=== PATIENT | female | born 1950 | race Caucasian/White ===

== ENCOUNTER 2017-01-07 06:20 | Inpatient (IN) | payer BC ==
--- NOTE | 2016-12-31 22:31 | HP ---
ADMISSION HISTORY AND PHYSICAL: DATE OF ADMISSION: 01/07/17 ATTENDING SURGEON: Dr. Eleno Crowell. CHIEF COMPLAINT: Rectosigmoid lesion. HISTORY OF PRESENT ILLNESS: This is a 66-year-old female who in recent months was found to have an ischemic left fifth toe. She underwent CTA for evaluation , which apparently showed a right lower lobe lesion of concern. There was an attempt at biopsy of the lesion, but it was nondiagnostic and she was not able to undergo further attempt. A subsequent PET scan did show the aforementioned right lower lobe lesion, but also a separate lesion in the area of the rectosigmoid colon. She underwent attempted colonoscopy on 12/11/[address] Hutchinson, this showing a near obstructing, malignant-appearing lesion at 15 cm. He was unable to advance the scope past the lesion. Multiple biopsies were performed, which showed tubulovillous adenoma with dysplasia. Of note, the patient did tolerate the prep and states that since the colonoscopy, her stools have been more formed though occasionally accompanied by cramping. Prior to that, she was experiencing diarrhea 4 to 6 times per day on a daily basis for the past 6 months. She denies any bright red blood per rectum, melena, or tarry stools. She was seen in the office by Dr. Crowell on 12/21/16. He reviewed her workup and she was examined. He has reviewed with her the indications for surgery, the risks, benefits, and alternatives. He will plan to check the remainder of the colon grossly and did not feel that further attempts at completion colonoscopy were indicated at this stage. She understands the plan for surgery and would like to proceed as scheduled with exploratory laparotomy with low anterior resection. She will complete standard mechanical with oral antibiotics, bowel prep, and receive standard IV prophylactic antibiotics. PAST MEDICAL HISTORY: Hypertension; long-term tobacco use; peripheral arterial disease (I do not have immediate access to her CTA results); type 2 diabetes ( poorly controlled with some degree of peripheral neuropathy); right lower lobe lung mass of undetermined significance, to be followed. She also states that she had a CVA in 2006 with spontaneous resolution and negative workup at that time. PAST SURGICAL HISTORY: Previous surgeries include right elbow surgery, open cholecystectomy, open appendectomy, and tubal ligation. CURRENT MEDICATIONS: 1. Atenolol/chlorthalidone 50/25 one tablet b.i.d. 2. Lisinopril 40 mg q. day. 3. Metformin 1000 mg b.i.d. 4. Levemir up to 30 units q.h.s. (the patient occasionally gives herself less to avoid hypoglycemia) (the patient instructed to reduce to 15 units the evening prior to her bowel prep on 01/05/17 and the evening prior to surgery, , or as directed by the anesthesiologist). 5. Pentoxifylline extended release 400 mg q. day (the patient instructed to hold after her 01/04/17 dose). Her medicine list also includes lovastatin 40 mg q. day though the patient does not believe she is currently this. DRUG ALLERGIES: PENICILLIN (rash). FAMILY HISTORY: Negative for colorectal cancer and also negative for anesthesia problems, bleeding, or clotting disorders. SOCIAL HISTORY: The patient lives with her partner and her mother. She is not currently working, but has worked previously in . She is a current smoker , 1 pack per day, but has smoked up to 2 packs per day for 30 years. She denies use of alcohol or other recreational drugs. REVIEW OF SYSTEMS: General: No recent constitutional symptoms other than per the HPI. Her weight has been stable. Cardiovascular: She is treated for hypertension. No additional history of known cardiovascular disease. She is scheduled for a nuclear stress test on 01/01/17 with followup with the seismic interpreter on 01/04/17. Respiratory: Long-term smoking history. She did have pulmonary function tests which were relatively normal. Known PET-avid right lower lobe lung mass (2.5 cm). GI: No upper GI symptoms, otherwise per HPI. : No problems reported. FUR SEWER: She states it has been many years since she had pelvic exam done and per her chart history, she has had some abnormal previous Pap smears. She is encouraged to have this done with her PCP. She states her last breast exam and mammogram was about 2 years ago with no significant interval history. She is also encouraged to have this done through her PCP. Endocrine: Type 2 diabetes, poorly controlled. Most recent A1c 8.5 from her chart record. Fingersticks typically running between 100 and 150 in the morning and between 200 and 300 in the evening. Neuropsych: No additions to above. PHYSICAL EXAMINATION GENERAL: Well-nourished, well-developed female. Who appears somewhat older than her stated age, in no acute distress. VITAL SIGNS: Height 61 inches, weight 160 pounds by history, blood pressure 150 /90, pulse 72, respirations 16. HEENT: Pupils equal, round, and reactive. EOMs intact. No conjunctival pallor. Oropharynx: Teeth in fair repair. No intraoral lesions. NECK: No lymphadenopathy, thyromegaly, or masses. LUNGS: Clear to auscultation. No rales or wheezes. HEART: Regular rhythm. No murmur noted. BREASTS: Not examined. ABDOMEN: Well-healed right subcostal and right lower quadrant incisions. Abdomen is otherwise soft, nontender, and without palpable masses or organomegaly. EXTREMITIES: No edema. I did not specifically examine her feet. Per her PCP notes, pedal pulses are 2+ and equal bilaterally. There is no mention regarding the left fifth toe, but per Dr. Crowell's history, it auto- amputated and did not require any further intervention. GENITALIA AND RECTAL: Not done. BACK: No spinous process or CVA tenderness. NEUROLOGICAL: Grossly intact. Specific testing not performed. SKIN: Warm and dry. No suspicious rashes or lesions noted. IMPRESSION: Highly suspicious lesion in the rectosigmoid colon. PLAN: Exploratory laparotomy and low anterior resection. DAVID VARGAS CC: Dr. Eleno Crowell; Dr. Cruz Ayers; Dr. Patrice Calabrese; Dr. Elkin Hutchinson ; [facility] * [id number]/[facility] #: [id number] [facility]
[~2017-01-07 06:20] MED LIST: Famotidine IV* 10 MG/ML 2 ML (20 mg) ONE; Heparin VIAL(*) 5000 UNITS/ML VIAL (FIVE THOUSAND) ONE; Metoclopramide TAB* 10 MG ONE
[2017-01-07] MEDS ORDERED: Ondansetron INJ* 2 MG/ML VIAL ONE (07:23)
[2017-01-07] MEDS ORDERED: Rocuronium* 10 MG/ML VIAL ONE ×2 (07:23→10:39)
[2017-01-07] MEDS ORDERED: Lidocaine 2% PF* 5 ML VIAL ONE (07:23)
[2017-01-07] MEDS ORDERED: Surgical Lubricant STERILE* 120 GM TOP.GEL ONE (07:23)
[2017-01-07] MEDS ORDERED: Propofol* 10 MG/ML 20 ML BTL IV PUSH ONE (07:23)
[2017-01-07] MEDS ORDERED: fentaNYL* 50 MCG/ML 2 ML VIAL (100 MCG VIAL) ONE ×3 (07:23→10:39)
[2017-01-07] MEDS ORDERED: Ketorolac INJ* 30 MG/ML 1 ML VIAL ONE (07:23)
[2017-01-07] MEDS ORDERED: Dexamethasone IV* 4 MG/ML 1 ML (4 MG) ONE (07:23)
[2017-01-07] MEDS ORDERED: KETAMINE HCL* 50 MG/ML 10 ML VIAL ONE (07:24)
[2017-01-07] MEDS ORDERED: Midazolam* 1 MG/ML 5 ML VIAL (5 MG) ONE (07:24)
[2017-01-07] MEDS ORDERED: Insulin REGULAR(*) 1 UNITS UNIT ONE ×2 (07:36→09:39)
[2017-01-07] MEDS ORDERED: Ertapenem* 1 GM in NS 0.9% 50 ML* 50 ML IVPB ONE (08:00)
[2017-01-07] MEDS ORDERED: EPHEDrine (Pressors)* 50 MG/ML VIAL ONE (08:29)
[2017-01-07] MEDS ORDERED: Phenylephrine INJ* 10 MG/ML 1 ML VIAL (10 MG) ONE (08:30)
[2017-01-07] MEDS ORDERED: Ondansetron INJ* 2 MG/ML VIAL IV PRN ×2 (09:45→11:46)
[2017-01-07] MEDS ORDERED: Levalbuterol 0.63MG/3ML NEB INH PRN (09:45)
[2017-01-07] MEDS ORDERED: HYDROmorphone* 1 MG/ML 1 ML SYR IV PRN (09:45)
[2017-01-07] MEDS ORDERED: fentaNYL* 50 MCG/ML 2 ML VIAL (100 MCG VIAL) IV PRN (09:45)
[2017-01-07] MEDS ORDERED: Neostigmine Methylsulfate* 2 MG/2 ML SYRINGE ONE (11:04)
[2017-01-07] MEDS ORDERED: Glycopyrrolate IV* 0.2 MG/ML 1 ML VIAL ONE (11:04)
[2017-01-07] MEDS ORDERED: HYDROmorphone* 1 MG/ML 1 ML SYR ONE ×2 (11:07→11:57)
[2017-01-07] MEDS ORDERED: Acetaminophen TAB* 325 MG PO PRN (11:46)
--- NOTE | 2017-01-07 11:48 | SURGPN ---
Brief Operative Note - Surgery Procedures: Procedures OPERATIVE REPORT PRE-OP: Near-obstructing distal sigmoid colon mass POST-OP: Same PROCEDURE: Open Low anterior colon resection with diverting loop ileostomy SURGEON: MD Mervat ANESTHESIA: General with Dr. Paul ASST: Hola Mehta PA IVF: 2 liters of crystalloid EBL: 200 cc SPECIMEN: rectosigmoid URINE: 250 cc DRAIN: none WOUND CLASS: 4 COMPLICATIONS: none TO PACU
[2017-01-07] MEDS ORDERED: Morphine PCA ADULT* 5 MG/ML 30 ML PCA SCH (12:00)
[2017-01-07] MEDS ORDERED: Labetalol IV* 5 MG/ML 20 ML VIAL IV PUSH ONE (13:00)
[2017-01-07] MEDS ORDERED: Morphine PCA ADULT* 5 MG/ML 30 ML ONE (13:01)
[2017-01-07] MEDS ORDERED: Dextrose 50% Syringe 50 ML* 25 GM/50 ML SYRINGE IV PUSH PRN (14:35)
[2017-01-07] MEDS ORDERED: hydrALAZINE IV* 20 MG/ML VIAL IV SLOW PU PRN (14:37)
[2017-01-07] MEDS ORDERED: Metoprolol Tartrate IV* 1 MG/ML 5 ML VIAL IV SCH (15:00)
[2017-01-07] MEDS: Heparin VIAL(*) 5000 UNITS/ML VIAL (FIVE THOUSAND) SUBCUT SCH ×2 (15:56→21:23)
[2017-01-07] MEDS: Metoprolol Tartrate IV* 1 MG/ML 5 ML VIAL IV SCH ×2 (16:03→21:25)
[2017-01-07] MEDS: Insulin LISPRO* 1 UNITS UNIT SUBCUT SCH ×2 (17:07→21:20)
[2017-01-07] MEDS ORDERED: Insulin LISPRO* 1 UNITS UNIT SUBCUT SCH (18:00)
--- NOTE | 2017-01-07 19:58 | CONS ---
CONSULTATION REPORT: DATE OF CONSULT: 01/07/17 PRIMARY CARE PROVIDER: Dr. Ayers. REQUESTING PROVIDER: Dr. Crowell. REASON FOR CONSULT: Medical comanagement. HISTORY OF PRESENT ILLNESS: Ms. Franklin is a 66-year-old female, who was recently identified to have a near-obstructing malignant-appearing lesion at 15 cm in the sigmoid colon with biopsy showing tubulovillous adenoma with dysplasia. The patient underwent open low anterior colon resection with diverting loop ileostomy on 01/07/17. The patient is seen on the surgical short stay unit. The patient is very sleepy postoperatively. She can barely keep her eyes open to speak with me. She currently denies any pain or any other symptoms. PAST MEDICAL HISTORY: Per previous records: 1. Hypertension. 2. Tobacco abuse. 3. Peripheral arterial disease. 4. Type 2 diabetes. 5. Right lower lobe lung mass of undetermined significance. 6. History of CVA in 2006. PAST SURGICAL HISTORY: 1. Right elbow surgery. 2. Open cholecystectomy. 3. Open appendectomy. 4. Tubal ligation. 5. Open low anterior colon resection with diverting loop ileostomy. MEDICATIONS: Home medications: 1. Lisinopril 40 mg p.o. daily. 2. Levemir 24 to 30 units subcutaneous q.h.s. 3. Atenolol/chlorthalidone 50/25 two tabs p.o. daily. 4. Metformin 1000 mg p.o. twice daily. 5. Trental 400 mg p.o. daily. Current hospital medications: 1. Tylenol 650 mg p.o. q.4 hours p.r.n. pain. 2. Colace 100 mg p.o. b.i.d. p.r.n. constipation. 3. . 4. Heparin 5000 units subcutaneous q.8 hours. 5. Morphine FRONT OFFICE ASSOCIATE. 6. Zofran 4 mg IV q.4 hours p.r.n. nausea. 7. Normal saline at 125 mL/hour. ALLERGIES: PENICILLIN. FAMILY HISTORY: Per admission H and P. Negative for colorectal cancer, bleeding, or clotting disorders. SOCIAL HISTORY: Per admitting H and P. The patient lives with her partner and her mother. She is not working. She smokes 1 pack per day, but has smoked in the past up to 2 packs per day for 30 years. She denies any alcohol use. REVIEW OF SYSTEMS: Unobtainable due to lethargy postoperatively. PHYSICAL EXAM: Blood pressure 143/74, pulse 81, respirations 18, temp 97.6, O2 sat 98% on 4 L. General: The patient is a well-developed, middle-aged female lying in the bed, awakens to voice but promptly falls back asleep, in no acute distress. HEENT: Pupils are equal, they are round. Extraocular muscles are intact. Oropharynx is clear. Oral mucosa is slightly dry. There is no submandibular, cervical, or supraclavicular adenopathy. Thyroid is not enlarged. No thyroid nodule is noted. Cardiac: Normal S1 and S2. Regular rate and rhythm. I do not appreciate any murmurs. Pulmonary: Lungs are clear to auscultation anteriorly. Abdomen: Bowel sounds are hypoactive. Abdomen appears to be slightly distended. The midline incision is covered with the clean and dry dressing. There is soft brown stool noted in the ileostomy bag. Musculoskeletal: There is no cyanosis or clubbing of the digits. The patient does not move her limbs at this point due to being asleep. Neuro Exam: Deferred at this time due to the patient is sleeping. Psych: The patient is sleepy, but she is aware of current situation. LABORATORY DATA: Most recent glucose 209. ASSESSMENT AND PLAN: Ms. Franklin is a 66-year-old female, who was recently diagnosed to have a highly suspicious lesion in the rectosigmoid colon undergoing exploratory laparotomy with open low anterior colon resection and creation of loop ileostomy. 1. Sigmoid colon lesion, status post open low anterior colon resection with creation of loop ileostomy. Management per General Surgery including pain control and DVT prophylaxis. 2. Type 2 diabetes. The patient's sugars are quite elevated. She was instructed to take only half of her usual dose of Levemir the night prior to surgery. It is unclear how well the patient will be eating on the day postoperatively; therefore, I will continue her only on Lantus 10 units subcutaneous nightly. I will go ahead and order hemoglobin A1c to try to identify how well controlled her sugars are at baseline. She will be on a lispro sliding scale a.c. and h.s. The patient will likely need adjustments in her insulin regimen as I am holding her metformin and again she is only receiving a third of her usual dose of prolonged-acting insulin. These will need to be followed closely as we would like to keep her blood sugars in optimal range for wound healing. 3. Hypertension. At this point, the patient is not taking much in by mouth. Her blood pressure is mildly to moderately elevated. I will go ahead and start her on metoprolol 5 mg IV q.6 hours standing with hold parameters for heart rate less than 65. Additionally, hydralazine will be ordered as I am holding her oral atenolol and chlorthalidone as well as her lisinopril. Once the patient is routinely taking in meds by mouth, these medications can be added back. 4. Stage III chronic kidney disease. The patient had lab work performed on that reveals a creatinine of 1.33. This is within the patient's normal range of creatinine. She will need to be monitored closely for worsening. Again, I am holding her chlorthalidone and moving forward, I would highly consider discontinuing the chlorthalidone altogether. 5. Peripheral arterial disease. At this time, the patient's Trental will be held. Again, once she is taking her medications routinely, this can be added back at the discretion of General Surgery. 6. DVT prophylaxis. Per General Surgery, the patient has been started on heparin 5000 units subcutaneous q.8 hours. 7. Code status is full. TIME SPENT: Forty minutes was spent on this consultation of which greater than half was spent reviewing the patient's past records and attempting a physical exam and history with the patient. CC: Dr. Ayers; Dr. Crowell* [id number]/[facility] #: [id number] G[facility]
[2017-01-07] MEDS: NS 0.9% 1000 ML* 1,000 ML IV SCH (20:45)
[2017-01-07] MEDS ORDERED: Insulin GLARGINE(*) 1 UNITS UNIT SUBCUT SCH (21:00)
[2017-01-08] MEDS: Metoprolol Tartrate IV* 1 MG/ML 5 ML VIAL IV SCH ×4 (03:19→21:24)
[2017-01-08] MEDS: Heparin VIAL(*) 5000 UNITS/ML VIAL (FIVE THOUSAND) SUBCUT SCH ×3 (04:56→21:27)
[2017-01-08] MEDS: NS 0.9% 1000 ML* 1,000 ML IV SCH ×2 (04:57→21:46)
[2017-01-08 05:23] LABS: Hematocrit 33 % (35-47); Hemoglobin 10.7 g/dl (12.0-16.0); Mean Corpuscular HGB Conc 32 g/dl (31-36); Mean Corpuscular Hemoglobin 26 pg (27-31); Mean Corpuscular Volume 80 fL (80-97); Mean Platelet Volume 9 um3 (7.4-10.4); Red Blood Count 4.14 10^6/ul (4.0-5.4); Red Cell Distribution Width 16 % (10.5-15); White Blood Count 12.4 10^3/ul (3.5-10.8)
[2017-01-08 05:48] LABS: BUN/Creatinine Ratio 15.5 (8-20); Calcium 7.9 mg/dL (8.6-10.3); EGFR African American 45.7 (>60); EGFR Non-African American 35.5 (>60); Magnesium 1.3 mg/dL (1.9-2.7); Potassium 3.6 mmol/L (3.5-5.0)
[2017-01-08] MEDS ORDERED: Magnesium Sulfate 2 GM IV* 2 GM/50 ML BAG IVPB ONE (07:05)
--- NOTE | 2017-01-08 07:12 | PN ---
Progress Note - Progress Note SOAP: Subjective: She is doing well with minimal pain and no trouble breathing Slept OK for several hours. No nausea Objective: Temp Pulse Resp BP Pulse Ox 98.1 F 91 16 120/57 96 01/08/17 03:18 01/08/17 03:18 01/08/17 06:00 01/08/17 03:18 01/08/17 06:00 Intake & Output 01/06/17 01/07/17 01/08/17 01/09/17 06:59 06:59 06:59 06:59 Intake Total 4480 Output Total 1050 Balance 3430 Weight 154 lb Intake: IV Fluids 4150 LR 2200 NS (0.9%) 1950 Oral 330 Output: Lim 800 Colostomy 50 Estimated Blood Loss 200 PEX: Comfortable Lungs are clear with decreased breath sounds at the bases. No rales Abd is soft and non-distended. Bowel sounds are present. Dressing intact. Ostomy is pink and edematous and has some green thick fluid in bag Extremities without edema Laboratory Results - last 24 hr 01/07/17 01/07/17 01/07/17 07:05 07:10 09:36 WBC RBC Hgb Hct MCV MCH MCHC RDW Plt Count MPV Neut % (Auto) Lymph % (Auto) [place] % (Auto) Eos % (Auto) Baso % (Auto) Absolute Neuts (auto) Absolute Lymphs (auto) Absolute Monos (auto) Absolute Eos (auto) Absolute Basos (auto) Absolute Nucleated RBC Nucleated RBC % Sodium Potassium Chloride Carbon Dioxide Anion Gap BUN Creatinine Est GFR ( Amer) Est GFR (Non-Af Amer) BUN/Creatinine Ratio Glucose POC Glucose (mg/dL) 233 H 231 H 255 H Hemoglobin A1c Calcium Magnesium 01/07/17 01/07/17 01/07/17 10:38 12:12 16:47 WBC RBC Hgb Hct MCV MCH MCHC RDW Plt Count MPV Neut % (Auto) Lymph % (Auto) [place] % (Auto) Eos % (Auto) Baso % (Auto) Absolute Neuts (auto) Absolute Lymphs (auto) Absolute Monos (auto) Absolute Eos (auto) Absolute Basos (auto) Absolute Nucleated RBC Nucleated RBC % Sodium Potassium Chloride Carbon Dioxide Anion Gap BUN Creatinine Est GFR ( Amer) Est GFR (Non-Af Amer) BUN/Creatinine Ratio Glucose POC Glucose (mg/dL) 212 H 209 H 334 H Hemoglobin A1c Calcium Magnesium 01/07/17 01/08/17 01/08/17 20:55 04:51 04:51 WBC 12.4 H RBC 4.14 Hgb 10.7 L Hct 33 L MCV 80 MCH 26 L MCHC 32 RDW 16 H Plt Count 287 MPV 9 Neut % (Auto) 80.0 Lymph % (Auto) 14.1 L [place] % (Auto) 5.5 Eos % (Auto) 0.2 Baso % (Auto) 0.2 Absolute Neuts (auto) 10.0 H Absolute Lymphs (auto) 1.7 Absolute Monos (auto) 0.7 Absolute Eos (auto) 0 Absolute Basos (auto) 0 Absolute Nucleated RBC 0 Nucleated RBC % 0 Sodium 135 Potassium 3.6 Chloride 105 Carbon Dioxide 21 L Anion Gap 9 BUN 23 Creatinine 1.48 H Est GFR ( Amer) 45.7 Est GFR (Non-Af Amer) 35.5 BUN/Creatinine Ratio 15.5 Glucose 244 H POC Glucose (mg/dL) 292 H Hemoglobin A1c Calcium 7.9 L Magnesium 1.3 L 01/08/17 04:51 WBC RBC Hgb Hct MCV MCH MCHC RDW Plt Count MPV Neut % (Auto) Lymph % (Auto) [place] % (Auto) Eos % (Auto) Baso % (Auto) Absolute Neuts (auto) Absolute Lymphs (auto) Absolute Monos (auto) Absolute Eos (auto) Absolute Basos (auto) Absolute Nucleated RBC Nucleated RBC % Sodium Potassium Chloride Carbon Dioxide Anion Gap BUN Creatinine Est GFR ( Amer) Est GFR (Non-Af Amer) BUN/Creatinine Ratio Glucose POC Glucose (mg/dL) Hemoglobin A1c 8.1 H Calcium Magnesium Assessment: POD#1 s/p low anterior resection with diverting loop ileostomy--pathology pending Post-op ileus HTN DM Tobacco abuse Plan: OOB to chair and pulmonary toilet DM_Blood sugar control--appreciate hospitalist consult PPI and sub q heparin Replete magnesium. Lim to monitor urine output for another 24 hours.
[2017-01-08] MEDS: Insulin LISPRO* 1 UNITS UNIT SUBCUT SCH ×4 (08:54→21:23)
[2017-01-08] MEDS: Pantoprazole IV* 40 MG IV SCH (08:56)
[2017-01-08] MEDS ORDERED: Docusate CAP* 100 MG PO PRN (09:00)
--- NOTE | 2017-01-08 15:27 | PN ---
Subjective Date of Service: 01/08/17 Interval History: HOSPITALIST PROGRESS NOTE Patient seen and examined at bedside. She states her pain is controlled, but the GRAIN ELEVATOR OPERATOR makes her sleepy. Offers no other complaints. Family History: Unchanged from Admission Social History: Unchanged from Admission Past Medical History: Unchanged from Admission Objective Active Medications: Acetaminophen (Tylenol Tab*) 650 mg PO Q4H PRN PRN Reason: Pain Or Temperature >101 F Dextrose (D50w Syringe 50 Ml*) 12.5 gm IV PUSH .FOR FS < 60 - SS PRN PRN Reason: FS < 60 Docusate Sodium (Colace Cap*) 100 mg PO BID PRN PRN Reason: CONSTIPATION Heparin Sodium (Porcine) (Heparin Vial(*)) 5,000 units SUBCUT Q8HR [facility] Last Admin: 01/08/17 13:37 Dose: 5,000 units Hydralazine HCl (Apresoline Iv*) 5 mg IV SLOW PU Q6H PRN PRN Reason: SBP>180 Morphine Sulfate (Morphine It Technician Adult* 5 Mg/Ml) 30 mls @ 0 mls/hr GRAIN ELEVATOR OPERATOR .change Q24H NATASHA; Per Protocol PRN Reason: Protocol Sodium Chloride (Ns 0.9% 1000 Ml*) 1,000 mls @ 125 mls/hr IV PER RATE [facility] Last Admin: 01/08/17 04:57 Dose: 125 mls/hr Insulin Glargine (Lantus(*)) 20 units SUBCUT BEDTIME NATASHA Insulin Human Lispro (Humalog*) 0 units SUBCUT ACHS NATASHA PRN Reason: Protocol Last Admin: 01/08/17 13:37 Dose: 4 units Metoprolol Tartrate (Lopressor Iv*) 5 mg IV Q6H [facility] Last Admin: 01/08/17 08:56 Dose: 5 mg Ondansetron HCl (Zofran Inj*) 4 mg IV Q4H PRN PRN Reason: NAUSEA/VOMITING Pantoprazole Sodium (Protonix Iv*) 40 mg IV DAILY [facility] Last Admin: 01/08/17 08:56 Dose: 40 mg Vital Signs 01/08/17 01/08/17 12:06 15:11 Temperature 98.2 F 98.8 F Pulse Rate 81 81 Respiratory 16 16 Rate Blood Pressure 120/71 130/67 (mmHg) O2 Sat by Pulse 100 100 Oximetry Oxygen Devices in Use Now: Nasal Cannula Appearance: Pleasant lady lying in bed in NAD. Eyes: No Scleral Icterus Ears/Nose/Mouth/Throat: Mucous Membranes Moist Neck: Trachea Midline Respiratory: Symmetrical Chest Expansion and Respiratory Effort, Clear to Auscultation Cardiovascular: RRR - Normal S1 and S2 Abdominal: - - Soft, mild incisional tenderness, NG, NR, CDI, ostomy is pink, bag is empty, BS+ Extremities: No Edema Neurological: Alert and Oriented x 3, NL Muscle Strength and Tone Lines/Tubes/Other Access: Clean, Dry and Intact Peripheral IV Nutrition: Taking PO's Result Diagrams: 01/08/17 04:51 01/08/17 04:51 Assess/Plan/Problems-Billing Assessment: Mrs. Franklin is a 66yo F with PMH of HTN, tobacco abuse, PAD, type 2 DM, CVA, admitted for colon mass ressection. - Patient Problems (1) Colonic mass Comment: - S/p anterior ressection with diverting loop ileostomy. - Path pending. - Management as per Surgery. (2) Type 2 diabetes mellitus Comment: - Still uncontrolled. - Increase Lantus and continue Lispro SS. (3) HTN (hypertension) Comment: - Controlled. - Continue IV metoprolol, IV hydralazine. - Plan to resume PO meds tomorrow. (4) CKD stage 3 secondary to diabetes Comment: - Renal function is stable - continue to follow. (5) DVT prophylaxis Comment: - SQ heparin. (6) Full code status Status and Disposition: Inpatient. Hospitalist service will continue to follow.
--- NOTE | 2017-01-08 18:53 | OP ---
DATE OF OPERATION: 01/07/17 - ROOM #334 DATE OF : 54 SURGEON: Eleno Crowell MD CHARGER: Bob Howard MD ANESTHESIOLOGIST: Dr. Paul. ANESTHESIA: General. PRE-OP DIAGNOSIS: Proximal rectal near obstructing tumor. POST-OP DIAGNOSIS: Proximal rectal near obstructing tumor. OPERATIVE PROCEDURE: Low anterior rectosigmoid resection with diverting loop ileostomy. ESTIMATED BLOOD LOSS: 200 cc. IV FLUIDS: 2200 cc crystalloid. URINE OUTPUT: 250 cc. SPECIMENS: Portion of the rectosigmoid colon. DRAINS: None. COMPLICATIONS: None. FINDINGS: The patient did not have an adequate bowel prep due to the apparent near obstructing lesion and due to her multiple medical comorbidities including obstructive lung disease with tobacco abuse, diabetes and hypertension, although the anastomosis showed no evidence of an air leak, a temporary diverting loop ileostomy was fashioned to protect the anastomosis. DESCRIPTION OF PROCEDURE: Written informed consent was obtained, the abdomen was marked with indelible ink and preoperative antibiotics were administered. The patient was taken to the operating room, placed in the supine position. Sequential compression devices and a warming blanket were applied. The patient declined an epidural catheter placement. General anesthesia was administered. On attempted insertion of Lim catheter, a large amount of brown foul-smelling fluid passed per rectum which required an extensive amount of clean up. It did not appear that there was an adequate bowel prep. A Lim catheter was inserted after clean up. The abdomen and perineum were then prepped and draped in usual sterile fashion. Time-out verification was completed. Midline incision from above the umbilicus down to the pubis was then fashioned using a 15-blade knife and the peritoneal cavity was entered under direct vision. There was no intraabdominal fluid noted. No other adhesions. There were no other significant adhesions down into the pelvis. The patient has not undergone a complete colonoscopy due to the obstructing nature of the lesion, thus I was able to palpate the cecum. The appendix had been removed. The right colon and transverse colon, as well as descending colon down into the sigmoid colon were distended with air but I appreciated no palpable mass or serosal abnormalities. The small bowel was run from the ligament of Treitz down to the cecum and this was all unremarkable as well as its mesentery. The patient had undergone an open cholecystectomy many years ago. There were significant adhesions in the right upper quadrant. I was able to feel the left lateral segment of the liver and portion of the right part of the liver and I appreciated no masses although this was not a complete examination, but I did not feel that it was indicated to attempt to lyse the significant amount of adhesions especially in light of the fact that the CAT scan preoperatively was unremarkable. We then turned out attention down to the rectosigmoid area. Just at above the pelvic rim which was 5 to 6 cm above the peritoneal reflexion was a large mass of about 5 x 6 cm. This involved the serosa which was consistent with the wound location from the endoscopy. There was tattoo placed distal to this from the endoscopy which we were able to identify. Attention was then turned to the resection. The white line of Toldt was identified and the distal descending and sigmoid colon mobilized along this plane and the peritoneum was divided. We were able to enter the retroperitoneum and identified the left ureter without difficulty. This was protected from injury throughout. I then scored the peritoneum down to the peritoneal reflexion which was really well below the palpable mass and appeared to give us generous margin. We scored along the anterior rectum just behind the uterus and then continued to incise the peritoneum along the right portion of the rectosigmoid mesentery. Likewise, we were able to identify the right ureter and this was protected from injury throughout. The uterus as well as both ovaries were identified and these appeared to be normal. Next, the point on the mid sigmoid colon was then identified with the generous margin proximal to lesion, we divided this with the KHUSHBU 60 green load of a stapler. The mesentery was then taken distally after we identified what appeared to be the superior rectal artery and the inferior mesenteric artery and this stump was oversewn with 2-0 Polysorb suture. A mesenteric dissection was continued down into the proximal rectum to include as much of the fatty issue as possible to just about the pelvic rim at our site where we had divided the peritoneum. Some of the lateral stalks were then divided with the LigaSure device. We were able to use a TA 60 green load stapler to fire along the rectum down into the pelvis well below the mass. Once this was fired, the colon and the rectum was divided. This was passed off as specimen. It appeared that we really did need to mobilize more of the descending colon and proximal sigmoid colon as this was quite redundant and the proximal staple line was of excellent calibre and extended down to the pelvis without difficulty. Next, using the pursestring suture device, clamp and a 3-0 Monocryl suture, a pursestring was placed. This showed the lumen to be excellent calibre and thus we felt that we could use a 31 EEA stapler and the anvil was placed within the lumen and the pursestring tied without difficulty. assistant operations manager went down to below the patient's legs and serially dilated the anus and passed the serial dilators up into the rectal stump without difficulty. Once this has been completed, the 31 mm EEA stapler was then passed up into the stump and the pin was passed through just anterior to the staple line. With care to prevent twisting of the proximal colon, the anvil was clipped into plates. The stapler was closed and subsequently fired. Two complete donuts were noted on the stapling device after this was removed from the rectum. Next, we clamped the mid sigmoid colon and filled the pelvis with saline. Generous amount of air was insufflated up from the rectum and there was no evidence of leak and anastomosis appeared to be viable with excellent blood supply and no evidence of tension. Once the anastomosis was complete, all sponge and laparotomy pads were removed. The abdomen and pelvis were irrigated thoroughly. Hemostasis was assured. In light of the patient's multiple comorbidities and the fact that I do not believe that this was an adequate bowel prep, despite the fact that the anastomosis showed no leak or required repair, I made a decision to proceed with a diverting loop ileostomy. A point on the terminal ileum about 10 inches proximal to the cecum was identified and appeared to come up through the anterior abdominal wall without tension. A circular portion of skin was excised to the right of the midline incision over the rectus muscle and the subcutaneous fat was removed. A defect was made through the rectus muscle and the loop of ileum was brought up with care to prevent twisting and it really came up nicely without tension. The midline incision was then closed with interrupted #1 Polysorb suture. The skin was approximated with stapling device and dry sterile dressings were applied. The loop ileostomy was matured to the skin by making a transverse incision in the small intestine and everting this back on to itself with interrupted 3-0 Polysorb suture. I did place a red rubber catheter through the base of the mesentery which is circled out, which was essentially fashioned a loop around the small bowel to prevent it from retracting. An ostomy appliance was then placed. The patient tolerated the procedure well and was taken to the recovery room in stable condition. CC: [facility]; Dr. Cruz Ayers in [place]; Dr. Patrice Calabrese, Oncology* [id number]/[facility] #: [id number] [facility]
[2017-01-08] MEDS: Insulin GLARGINE(*) 1 UNITS UNIT SUBCUT SCH (21:23)
[2017-01-09] MEDS: Metoprolol Tartrate IV* 1 MG/ML 5 ML VIAL IV SCH ×3 (04:05→14:19)
[2017-01-09] MEDS: NS 0.9% 1000 ML* 1,000 ML IV SCH ×3 (05:53→17:30)
[2017-01-09] MEDS: Heparin VIAL(*) 5000 UNITS/ML VIAL (FIVE THOUSAND) SUBCUT SCH ×3 (06:20→23:08)
[2017-01-09 06:34] LABS: Hematocrit 32 % (35-47); Hemoglobin 10.4 g/dl (12.0-16.0); Mean Corpuscular HGB Conc 33 g/dl (31-36); Mean Corpuscular Hemoglobin 26 pg (27-31); Mean Corpuscular Volume 81 fL (80-97); Mean Platelet Volume 9 um3 (7.4-10.4); Red Blood Count 3.93 10^6/ul (4.0-5.4); Red Cell Distribution Width 16 % (10.5-15); White Blood Count 10.2 10^3/ul (3.5-10.8)
[2017-01-09 07:00] LABS: Albumin 2.8 g/dL (3.2-5.2); BUN/Creatinine Ratio 10.4 (8-20); Calcium 8.6 mg/dL (8.6-10.3); EGFR African American 50.8 (>60); EGFR Non-African American 39.5 (>60); Globulin 2.4 g/dL (2-4); Magnesium 1.8 mg/dL (1.9-2.7); Total Bilirubin 0.3 mg/dL (0.2-1.0); Total Protein 5.2 g/dL (6.4-8.9)
[2017-01-09] MEDS ORDERED: Magnesium Sulfate 2 GM IV* 2 GM/50 ML BAG IVPB ONE ×2 (08:00→11:31)
[2017-01-09] MEDS: Pantoprazole IV* 40 MG IV SCH (09:41)
[2017-01-09] MEDS: Insulin LISPRO* 1 UNITS UNIT SUBCUT SCH ×4 (09:41→20:55)
--- NOTE | 2017-01-09 11:34 | PN ---
Progress Note - Progress Note SOAP: Subjective: [] Objective: [] Assessment: [] Plan: []
--- NOTE | 2017-01-09 11:36 | PN ---
Progress Note - Progress Note SOAP: Subjective: Slept well last night Pain is adequately controlled with FOOT ORTHOPEDIST No N/V Objective: Temp Pulse Resp BP Pulse Ox 98.8 F 84 18 168/75 98 01/09/17 07:26 01/09/17 07:26 01/09/17 10:00 01/09/17 07:26 01/09/17 10:00 Intake & Output 01/07/17 01/08/17 01/09/17 01/10/17 06:59 06:59 06:59 06:59 Intake Total 4480 2995 Output Total 1050 2225 700 Balance 3430 770 -700 Weight 154 lb Intake: IV Fluids 4150 1541 LR 2200 NS (0.9%) 1950 1541 IVPB 1454 NS (0.9%) 1400 magnesium 54 Oral 330 0 Output: Pan 800 2175 700 Colostomy 50 50 Estimated Blood Loss 200 PEX: COmfortable Lungs are CTA with decreased breath sounds at the bases Abd is soft and non-distended. Bowel sounds are present but hypoactive. The midline incision is clean and ddry Ostomy is pink and there is some thick green residue in the bag. Extremities without edema Laboratory Results - last 24 hr 01/08/17 01/08/17 01/08/17 12:09 17:05 21:07 WBC RBC Hgb Hct MCV MCH MCHC RDW Plt Count MPV Neut % (Auto) Lymph % (Auto) [place] % (Auto) Eos % (Auto) Baso % (Auto) Absolute Neuts (auto) Absolute Lymphs (auto) Absolute Monos (auto) Absolute Eos (auto) Absolute Basos (auto) Absolute Nucleated RBC Nucleated RBC % Sodium Potassium Chloride Carbon Dioxide Anion Gap BUN Creatinine Est GFR ( Amer) Est GFR (Non-Af Amer) BUN/Creatinine Ratio Glucose POC Glucose (mg/dL) 210 H 184 H 189 H Calcium Magnesium Total Bilirubin AST ALT Alkaline Phosphatase Total Protein Albumin Globulin Albumin/Globulin Ratio 01/09/17 01/09/17 01/09/17 05:53 05:53 07:28 WBC 10.2 RBC 3.93 L Hgb 10.4 L Hct 32 L MCV 81 MCH 26 L MCHC 33 RDW 16 H Plt Count 284 MPV 9 Neut % (Auto) 66.9 Lymph % (Auto) 21.5 L [place] % (Auto) 5.6 Eos % (Auto) 5.4 Baso % (Auto) 0.6 Absolute Neuts (auto) 6.8 Absolute Lymphs (auto) 2.2 Absolute Monos (auto) 0.6 Absolute Eos (auto) 0.6 Absolute Basos (auto) 0.1 Absolute Nucleated RBC 0 Nucleated RBC % 0 Sodium 137 Potassium 4.0 Chloride 106 Carbon Dioxide 24 Anion Gap 7 BUN 14 Creatinine 1.35 H Est GFR ( Amer) 50.8 Est GFR (Non-Af Amer) 39.5 BUN/Creatinine Ratio 10.4 Glucose 175 H POC Glucose (mg/dL) 175 H Calcium 8.6 Magnesium 1.8 L Total Bilirubin 0.30 AST 8 L ALT 9 Alkaline Phosphatase 42 Total Protein 5.2 L Albumin 2.8 L Globulin 2.4 Albumin/Globulin Ratio 1.2 01/09/17 11:29 WBC RBC Hgb Hct MCV MCH MCHC RDW Plt Count MPV Neut % (Auto) Lymph % (Auto) [place] % (Auto) Eos % (Auto) Baso % (Auto) Absolute Neuts (auto) Absolute Lymphs (auto) Absolute Monos (auto) Absolute Eos (auto) Absolute Basos (auto) Absolute Nucleated RBC Nucleated RBC % Sodium Potassium Chloride Carbon Dioxide Anion Gap BUN Creatinine Est GFR ( Amer) Est GFR (Non-Af Amer) BUN/Creatinine Ratio Glucose POC Glucose (mg/dL) 178 H Calcium Magnesium Total Bilirubin AST ALT Alkaline Phosphatase Total Protein Albumin Globulin Albumin/Globulin Ratio Pathology reviewed Assessment: POD # 2 s/p low anterior colon resection for colon cancer Post-op ileus HTN DM Chronic renal failure [] Plan: D/C pan Increase activity and pulmonary toilet Replete K+ Appreciate hospitalist help with medical problems including blood sugar control. Advance diet as tolerated Will discuss pathology reports with patient and her partner.
--- NOTE | 2017-01-09 11:49 | PN ---
Progress Note - Progress Note SOAP: Subjective: [] Doing well after surgery. Her pain is controlled with RETAIL SALES ADVISOR, sleepy. Still not eating, no gas yet. BS are improving and followed by Dr. Cabrera. Acetaminophen (Tylenol Tab*) 650 mg PO Q4H PRN PRN Reason: Pain Or Temperature >101 F Dextrose (D50w Syringe 50 Ml*) 12.5 gm IV PUSH .FOR FS < 60 - SS PRN PRN Reason: FS < 60 Docusate Sodium (Colace Cap*) 100 mg PO BID PRN PRN Reason: CONSTIPATION Heparin Sodium (Porcine) (Heparin Vial(*)) 5,000 units SUBCUT Q8HR [facility] Last Admin: 01/09/17 06:20 Dose: 5,000 units Hydralazine HCl (Apresoline Iv*) 5 mg IV SLOW PU Q6H PRN PRN Reason: SBP>180 Morphine Sulfate (Morphine Benefits Consultant Adult* 5 Mg/Ml) 30 mls @ 0 mls/hr RETAIL SALES ADVISOR .change Q24H NATASHA; Per Protocol PRN Reason: Protocol Sodium Chloride (Ns 0.9% 1000 Ml*) 1,000 mls @ 125 mls/hr IV PER RATE [facility] Last Admin: 01/09/17 05:53 Dose: 125 mls/hr Insulin Glargine (Lantus(*)) 20 units SUBCUT BEDTIME [facility] Last Admin: 01/08/17 21:23 Dose: 20 units Insulin Human Lispro (Humalog*) 0 units SUBCUT ACHS NATASHA PRN Reason: Protocol Last Admin: 01/09/17 09:41 Dose: 2 units Metoprolol Tartrate (Lopressor Iv*) 5 mg IV Q6H NATASHA Last Admin: 01/09/17 09:41 Dose: 5 mg Ondansetron HCl (Zofran Inj*) 4 mg IV Q4H PRN PRN Reason: NAUSEA/VOMITING Pantoprazole Sodium (Protonix Iv*) 40 mg IV DAILY [facility] Last Admin: 01/09/17 09:41 Dose: 40 mg Objective: [] Vital Signs Temp Pulse Resp BP Pulse Ox 98.8 F 84 18 168/75 98 01/09/17 07:26 01/09/17 07:26 01/09/17 10:00 01/09/17 07:26 01/09/17 10:00 HEENT - MUCOSA MOIST, NO JVD OR LAD CTA RRR S1S2 ABD - TRACE BS, DISTENDED. SOME LIQUID, NO STOOL, NO GAS ON EXAM IN BAG EXT TR EDEMA Pathology - T2 lesion that is at rectosigmoid junction. Review of gross specimen appears to show the cancer ends just above the rectal verge. Operative report consistent with but does not state directly a signior tumor. Review of PET and on imaging it appears to be a sigmoid mass, proximal to anterior bend in colon. Assessment: []66 year old with sigmoid mass and solitary pulmonary nodule. Resection of the sigmoid mass, T2 N0 with 19 LN removed. Plan: []1. Post operative recovery without complications to date and will continue to follow. Appreciate assistance of hospitalist service. 2. Colorectal caner. Appears to be sigmoid tumor but review of gross specimen raises question of if lesion extends to rectum. If rectal cancer would consider post operative radiation. Review of PET is reassuring. Will re-present in tumor board to discuss adjuvant treatment. Stage not determined second to pulmonary nodule. 3. Lung lesion. Ddx: solitary metastatic lesion from colon, primary lung cancer. She refused biopsy. For metastatic colon cancer, would plan VATS resection followed by adjuvant chemotherapy. If she has a primary lung cancer she would need a formal lobectomy and may not need adjuvant chemotherpy. No decision to be made today, discussed with patient and family.
[2017-01-09] MEDS ORDERED: Atenolol TAB* 50 MG PO SCH (16:00)
--- NOTE | 2017-01-09 16:02 | PN ---
Subjective Date of Service: 01/09/17 Interval History: HOSPITALIST PROGRESS NOTE Patient seen and examined at bedside. She feels tired, but pain is well controlled with JEWELLERY DESIGNER. Tolerating clear liquids well. Family History: Unchanged from Admission Social History: Unchanged from Admission Past Medical History: Unchanged from Admission Objective Active Medications: Acetaminophen (Tylenol Tab*) 650 mg PO Q4H PRN PRN Reason: Pain Or Temperature >101 F Dextrose (D50w Syringe 50 Ml*) 12.5 gm IV PUSH .FOR FS < 60 - SS PRN PRN Reason: FS < 60 Docusate Sodium (Colace Cap*) 100 mg PO BID PRN PRN Reason: CONSTIPATION Heparin Sodium (Porcine) (Heparin Vial(*)) 5,000 units SUBCUT Q8HR [facility] Last Admin: 01/09/17 14:19 Dose: 5,000 units Hydralazine HCl (Apresoline Iv*) 5 mg IV SLOW PU Q6H PRN PRN Reason: SBP>180 Morphine Sulfate (Morphine Family Psychologist Adult* 5 Mg/Ml) 30 mls @ 0 mls/hr JEWELLERY DESIGNER .change Q24H [facility]; Per Protocol PRN Reason: Protocol Sodium Chloride (Ns 0.9% 1000 Ml*) 1,000 mls @ 125 mls/hr IV PER RATE [facility] Last Admin: 01/09/17 15:15 Dose: 125 mls/hr Insulin Glargine (Lantus(*)) 20 units SUBCUT BEDTIME [facility] Last Admin: 01/08/17 21:23 Dose: 20 units Insulin Human Lispro (Humalog*) 0 units SUBCUT ACHS NATASHA PRN Reason: Protocol Last Admin: 01/09/17 13:29 Dose: 2 units Metoprolol Tartrate (Lopressor Iv*) 5 mg IV Q6H [facility] Last Admin: 01/09/17 14:19 Dose: 5 mg Ondansetron HCl (Zofran Inj*) 4 mg IV Q4H PRN PRN Reason: NAUSEA/VOMITING Pantoprazole Sodium (Protonix Iv*) 40 mg IV DAILY [facility] Last Admin: 01/09/17 09:41 Dose: 40 mg Vital Signs 01/09/17 01/09/17 12:00 15:37 Temperature 98.2 F Pulse Rate 80 Respiratory 18 20 Rate Blood Pressure 179/85 (mmHg) O2 Sat by Pulse 98 97 Oximetry Oxygen Devices in Use Now: Nasal Cannula Appearance: Pleasant lady lying in bed in NAD. Eyes: No Scleral Icterus Ears/Nose/Mouth/Throat: Mucous Membranes Moist Neck: Trachea Midline Respiratory: Symmetrical Chest Expansion and Respiratory Effort, Clear to Auscultation Cardiovascular: RRR - Normal S1 and S2 Abdominal: - - Soft, mild incisional tenderness, hypoactive bowel sounds, ostomy is pink, bag is empty Extremities: No Edema Neurological: Alert and Oriented x 3, NL Muscle Strength and Tone Lines/Tubes/Other Access: Clean, Dry and Intact Peripheral IV Nutrition: Taking PO's Result Diagrams: 01/09/17 05:53 01/09/17 05:53 Assess/Plan/Problems-Billing Assessment: Mrs. Franklin is a 66yo F with PMH of HTN, tobacco abuse, PAD, type 2 DM, CVA, admitted for colon mass ressection. - Patient Problems (1) Colonic mass Comment: - S/p anterior ressection with diverting loop ileostomy. - Path shows adenocarcinoma. - Management as per Surgery. - Oncology input appreciated. (2) Type 2 diabetes mellitus Comment: - Better controlled. - Continue Lantus and Lispro SS - will need to adjust when her diet is advanced. (3) HTN (hypertension) Comment: - Trending up. - Resume PO Atenolol and monitor. - Continue Hydralazine IV PRN. (4) CKD stage 3 secondary to diabetes Comment: - Renal function is stable - continue to follow. (5) DVT prophylaxis Comment: - SQ heparin. (6) Full code status Status and Disposition: Inpatient. Hospitalist service will continue to follow.
[2017-01-09] MEDS: Insulin GLARGINE(*) 1 UNITS UNIT SUBCUT SCH (20:55)
[2017-01-10] MEDS: Metoprolol Tartrate IV* 1 MG/ML 5 ML VIAL IV PRN ×2 (00:09→14:28)
[2017-01-10] MEDS: hydrALAZINE IV* 20 MG/ML VIAL IV SLOW PU PRN ×3 (01:51→15:45)
[2017-01-10] MEDS: NS 0.9% 1000 ML* 1,000 ML IV SCH ×2 (03:00→21:44)
[2017-01-10] MEDS: Heparin VIAL(*) 5000 UNITS/ML VIAL (FIVE THOUSAND) SUBCUT SCH ×3 (06:17→21:37)
[2017-01-10 06:44] LABS: Hematocrit 36 % (35-47); Hemoglobin 11.6 g/dl (12.0-16.0); Mean Corpuscular HGB Conc 32 g/dl (31-36); Mean Corpuscular Hemoglobin 26 pg (27-31); Mean Corpuscular Volume 80 fL (80-97); Mean Platelet Volume 9 um3 (7.4-10.4); Red Cell Distribution Width 16 % (10.5-15); White Blood Count 11.6 10^3/ul (3.5-10.8)
[2017-01-10 07:07] LABS: BUN/Creatinine Ratio 9.8 (8-20); Calcium 9.2 mg/dL (8.6-10.3); Potassium 3.9 mmol/L (3.5-5.0)
[2017-01-10] MEDS: Insulin LISPRO* 1 UNITS UNIT SUBCUT SCH ×4 (08:02→21:32)
[2017-01-10] MEDS: Morphine INJ* 2 MG/ML 1 ML SYRINGE IV PRN ×4 (08:09→21:44)
--- NOTE | 2017-01-10 08:36 | PN ---
Progress Note - Progress Note SOAP: Subjective: Had a "rough night" -cough and her BP was up No N/V and no appetite She says she did not take enough pain medication Objective: Temp Pulse Resp BP Pulse Ox 97.8 F 98 18 166/66 97 01/10/17 06:59 01/10/17 06:59 01/10/17 08:09 01/10/17 06:59 01/10/17 06:59 Intake & Output 01/08/17 01/09/17 01/10/17 01/11/17 06:59 06:59 06:59 06:59 Intake Total 4480 2995 2143 Output Total 1050 2225 4455 Balance 3430 770 -2312 Weight 154 lb Intake: IV Fluids 4150 1541 2033 LR 2200 NS (0.9%) 1950 1541 2033 IVPB 1454 60 NS (0.9%) 1400 magnesium 54 60 Oral 330 0 50 Output: Urine 3480 Lim 800 2175 700 Colostomy 50 50 175 Ileostomy 100 Estimated Blood Loss 200 PEX: Slightly uncomfortable Lungs with decreased breath sounds at the bases-no rales or wheezing/rhonchi Abd is soft and non-distended. Very few bowel sounds present. Incision is clean and intact without redness. Ostomy is pink and edematous with some thick green fluid in bag Extremities without edema Laboratory Results - last 24 hr 01/09/17 01/09/17 01/09/17 11:29 16:25 19:34 WBC RBC Hgb Hct MCV MCH MCHC RDW Plt Count MPV Neut % (Auto) Lymph % (Auto) [place] % (Auto) Eos % (Auto) Baso % (Auto) Absolute Neuts (auto) Absolute Lymphs (auto) Absolute Monos (auto) Absolute Eos (auto) Absolute Basos (auto) Absolute Nucleated RBC Nucleated RBC % Sodium Potassium Chloride Carbon Dioxide Anion Gap BUN Creatinine Est GFR ( Amer) Est GFR (Non-Af Amer) BUN/Creatinine Ratio Glucose POC Glucose (mg/dL) 178 H 135 H 143 H Calcium 01/09/17 01/10/17 01/10/17 20:48 06:15 06:15 WBC 11.6 H RBC 4.50 Hgb 11.6 L Hct 36 MCV 80 MCH 26 L MCHC 32 RDW 16 H Plt Count 358 MPV 9 Neut % (Auto) 75.6 Lymph % (Auto) 14.9 L Bee % (Auto) 3.3 Eos % (Auto) 5.5 Baso % (Auto) 0.7 Absolute Neuts (auto) 8.8 H Absolute Lymphs (auto) 1.7 Absolute Monos (auto) 0.4 Absolute Eos (auto) 0.6 Absolute Basos (auto) 0.1 Absolute Nucleated RBC 0 Nucleated RBC % 0 Sodium 136 Potassium 3.9 Chloride 104 Carbon Dioxide 19 L Anion Gap 13 H BUN 11 Creatinine 1.12 H Est GFR ( Amer) 63.0 Est GFR (Non-Af Amer) 49.0 BUN/Creatinine Ratio 9.8 Glucose 188 H POC Glucose (mg/dL) 150 H Calcium 9.2 04/06/17 07:43 WBC RBC Hgb Hct MCV MCH MCHC RDW Plt Count MPV Neut % (Auto) Lymph % (Auto) [place] % (Auto) Eos % (Auto) Baso % (Auto) Absolute Neuts (auto) Absolute Lymphs (auto) Absolute Monos (auto) Absolute Eos (auto) Absolute Basos (auto) Absolute Nucleated RBC Nucleated RBC % Sodium Potassium Chloride Carbon Dioxide Anion Gap BUN Creatinine Est GFR ( Amer) Est GFR (Non-Af Amer) BUN/Creatinine Ratio Glucose POC Glucose (mg/dL) 183 H Calcium Assessment: POD # 3 s/p low anterior colon resection with diverting ileostomy for colon cancer Pot-op ileus HTN DM Chronic renal failure WBC up slightly Plan: Will check CXR today Continue clear liquids Ostomy teaching Increase activity and pulmonary toilet PPI and subq heparin Recheck labs in AM
[2017-01-10] MEDS ORDERED: Lisinopril TAB* 10 MG PO SCH (09:00)
--- NOTE | 2017-01-10 09:25 | RAD ---
INDICATION: Productive cough COMPARISON: October 16, 2016 TECHNIQUE: PA and lateral dual-energy views were obtained. FINDINGS: Bones/Soft Tissues: There are no acute bony findings. Cardiomediastinal: The cardiomediastinal silhouette is normal. Lungs: There are no infiltrates. There is minor basilar hypoventilation. Pleura: There are no pleural effusions. Other: None IMPRESSION: MILD BASILAR HYPOVENTILATION.
[2017-01-10] MEDS: Pantoprazole IV* 40 MG IV SCH (09:34)
[2017-01-10] MEDS: Atenolol TAB* 50 MG PO SCH (09:34)
--- NOTE | 2017-01-10 13:20 | PN ---
Subjective Date of Service: 01/10/17 Interval History: HOSPITALIST PROGRESS NOTE Patient seen and examined at bedside. She's discouraged today. Afraid of coughing or taking a deep breath due to abdominal pain. PO intake has been minimal for the same reason. Family History: Unchanged from Admission Social History: Unchanged from Admission Past Medical History: Unchanged from Admission Objective Active Medications: Acetaminophen (Tylenol Tab*) 650 mg PO Q4H PRN PRN Reason: Pain Or Temperature >101 F Atenolol (Tenormin Tab*) 100 mg PO DAILY [facility] Last Admin: 01/10/17 09:34 Dose: 100 mg Dextrose (D50w Syringe 50 Ml*) 12.5 gm IV PUSH .FOR FS < 60 - SS PRN PRN Reason: FS < 60 Docusate Sodium (Colace Cap*) 100 mg PO BID PRN PRN Reason: CONSTIPATION Heparin Sodium (Porcine) (Heparin Vial(*)) 5,000 units SUBCUT Q8HR [facility] Last Admin: 01/10/17 06:17 Dose: 5,000 units Hydralazine HCl (Apresoline Iv*) 10 mg IV SLOW PU Q2H PRN PRN Reason: SBP>180 Last Admin: 01/10/17 06:16 Dose: 10 mg Sodium Chloride (Ns 0.9% 1000 Ml*) 1,000 mls @ 60 mls/hr IV .PER RATE [facility] Last Admin: 01/10/17 03:00 Dose: 60 mls/hr Insulin Glargine (Lantus(*)) 20 units SUBCUT BEDTIME [facility] Last Admin: 01/09/17 20:55 Dose: 20 units Insulin Human Lispro (Humalog*) 0 units SUBCUT ACHS [facility] PRN Reason: Protocol Last Admin: 01/10/17 11:44 Dose: 2 units Lisinopril (Prinivil Tab*) 10 mg PO DAILY [facility] Last Admin: 01/10/17 09:34 Dose: 10 mg Metoprolol Tartrate (Lopressor Iv*) 5 mg IV Q6H PRN PRN Reason: BLOOD PRESSURE Last Admin: 01/10/17 00:09 Dose: 5 mg Morphine Sulfate (Morphine Inj (Syringe)*) 1 mg IV Q1H PRN PRN Reason: PAIN Last Admin: 01/10/17 11:15 Dose: 1 mg Ondansetron HCl (Zofran Inj*) 4 mg IV Q4H PRN PRN Reason: NAUSEA/VOMITING Last Admin: 01/10/17 02:45 Dose: 4 mg Pantoprazole Sodium (Protonix Iv*) 40 mg IV DAILY [facility] Last Admin: 01/10/17 09:34 Dose: 40 mg Vital Signs 01/10/17 01/10/17 01/10/17 04:33 05:45 06:59 Temperature 97.9 F 97.8 F Pulse Rate 98 93 98 Respiratory 16 17 16 Rate Blood Pressure 179/92 198/86 166/66 (mmHg) O2 Sat by Pulse 95 95 97 Oximetry Oxygen Devices in Use Now: Nasal Cannula Appearance: Pleasant lady sitting up in recliner in NAD. Eyes: No Scleral Icterus Ears/Nose/Mouth/Throat: Mucous Membranes Moist Neck: Trachea Midline Respiratory: Symmetrical Chest Expansion and Respiratory Effort, Clear to Auscultation - but sounds are decreased in both bases Cardiovascular: RRR - Normal S1 and S2 Abdominal: - - Soft, diffuse tenderness, BS+ sluggish, ostomy is pink with mucus in the bag. Neurological: Alert and Oriented x 3, NL Muscle Strength and Tone Lines/Tubes/Other Access: Clean, Dry and Intact Peripheral IV Nutrition: Taking PO's Result Diagrams: 01/10/17 06:15 01/10/17 06:15 Assess/Plan/Problems-Billing Assessment: Mrs. Franklin is a 66yo F with PMH of HTN, tobacco abuse, PAD, type 2 DM, CVA, admitted for colon mass ressection. - Patient Problems (1) Atelectasis Comment: - Patient is a smoker as has chronic cough at baseline. - CxR shows basilar hypoventilation. - Encouraged to use incentive spirometry. (2) Colonic mass Comment: - S/p anterior ressection with diverting loop ileostomy. - Path shows adenocarcinoma. - Management as per Surgery. - Oncology input appreciated. (3) Type 2 diabetes mellitus Comment: - Better controlled. - Continue Lantus and Lispro SS - will need to adjust when her diet is advanced. (4) HTN (hypertension) Comment: - Trending up. - Increase Atenolol and add Lisinopril. - Continue Hydralazine IV PRN. - Continue to monitor. (5) CKD stage 3 secondary to diabetes Comment: - Renal function is stable - continue to follow. (6) DVT prophylaxis Comment: - SQ heparin. (7) Full code status Status and Disposition: Inpatient. Hospitalist service will continue to follow.
[2017-01-10] MEDS ORDERED: GuaiFENesin DM* 5 ML UDC PO PRN (13:21)
[2017-01-10] MEDS: Insulin GLARGINE(*) 1 UNITS UNIT SUBCUT SCH (21:37)
[2017-01-11] MEDS: Metoprolol Tartrate IV* 1 MG/ML 5 ML VIAL IV PRN (04:00)
[2017-01-11] MEDS: Morphine INJ* 2 MG/ML 1 ML SYRINGE IV PRN ×2 (04:00→06:58)
[2017-01-11] MEDS: Heparin VIAL(*) 5000 UNITS/ML VIAL (FIVE THOUSAND) SUBCUT SCH ×3 (05:26→21:46)
[2017-01-11] MEDS: hydrALAZINE IV* 20 MG/ML VIAL IV SLOW PU PRN ×3 (05:26→15:49)
[2017-01-11 06:34] LABS: Hematocrit 35 % (35-47); Hemoglobin 11.2 g/dl (12.0-16.0); Mean Corpuscular HGB Conc 32 g/dl (31-36); Mean Corpuscular Hemoglobin 26 pg (27-31); Mean Corpuscular Volume 80 fL (80-97); Mean Platelet Volume 9 um3 (7.4-10.4); Red Blood Count 4.34 10^6/ul (4.0-5.4); Red Cell Distribution Width 16 % (10.5-15)
[2017-01-11 06:54] LABS: Albumin 2.8 g/dL (3.2-5.2); BUN/Creatinine Ratio 11.2 (8-20); Calcium 8.9 mg/dL (8.6-10.3); EGFR African American 60.5 (>60); Globulin 2.6 g/dL (2-4); Magnesium 1.4 mg/dL (1.9-2.7); Phosphorus 2.8 mg/dL (2.5-5.0); Potassium 3.2 mmol/L (3.5-5.0); Total Bilirubin 0.3 mg/dL (0.2-1.0); Total Protein 5.4 g/dL (6.4-8.9)
[2017-01-11] MEDS ORDERED: KCL 10 MEQ/50 ML IVPREMIX* 10 MEQ/50 ML BAG ONE ×2 (07:18→15:17)
[2017-01-11] MEDS ORDERED: Lisinopril TAB* 10 MG ONE (07:18)
[2017-01-11] MEDS: Pantoprazole IV* 40 MG IV SCH (07:31)
[2017-01-11] MEDS: Lisinopril TAB* 10 MG PO SCH ×2 (07:31→07:47)
[2017-01-11] MEDS: Atenolol TAB* 50 MG PO SCH (07:31)
[2017-01-11] MEDS: KCL 10 MEQ/50 ML IVPREMIX* 10 MEQ/50 ML BAG IV SCH ×4 (07:32→15:19)
[2017-01-11] MEDS: Insulin LISPRO* 1 UNITS UNIT SUBCUT SCH ×4 (07:43→21:54)
--- NOTE | 2017-01-11 10:15 | PN ---
Subjective Date of Service: 01/11/17 Interval History: HOSPITALIST PROGRESS NOTE Patient seen and examined at bedside. She is in good spirits today. Pain is well controlled, tolerating clear liquids well. Cough is less frequent, trying to use IS more frequently. Family History: Unchanged from Admission Social History: Unchanged from Admission Past Medical History: Unchanged from Admission Objective Active Medications: Acetaminophen (Tylenol Tab*) 650 mg PO Q4H PRN PRN Reason: Pain Or Temperature >101 F Atenolol (Tenormin Tab*) 100 mg PO DAILY [facility] Last Admin: 01/11/17 07:31 Dose: 100 mg Dextrose (D50w Syringe 50 Ml*) 12.5 gm IV PUSH .FOR FS < 60 - SS PRN PRN Reason: FS < 60 Docusate Sodium (Colace Cap*) 100 mg PO BID PRN PRN Reason: CONSTIPATION Guaifenesin/Dextromethorphan (Robitussin Dm*) 5 ml PO Q4H PRN PRN Reason: COUGH Heparin Sodium (Porcine) (Heparin Vial(*)) 5,000 units SUBCUT Q8HR [facility] Last Admin: 01/11/17 05:26 Dose: 5,000 units Hydralazine HCl (Apresoline Iv*) 10 mg IV SLOW PU Q2H PRN PRN Reason: SBP>180 Last Admin: 01/11/17 05:26 Dose: 10 mg Sodium Chloride (Ns 0.9% 1000 Ml*) 1,000 mls @ 60 mls/hr IV .PER RATE [facility] Last Admin: 01/10/17 21:44 Dose: 60 mls/hr Potassium Chloride (Potassium Chloride 10 Meq/50 Ml Ivpremix*) 10 meq in 50 mls @ 50 mls/hr IV Q1H [facility] Stop: 01/11/17 10:59 Last Admin: 01/11/17 09:44 Dose: 50 mls/hr Insulin Glargine (Lantus(*)) 20 units SUBCUT BEDTIME [facility] Last Admin: 01/10/17 21:37 Dose: 20 units Insulin Human Lispro (Humalog*) 0 units SUBCUT ACHS [facility] PRN Reason: Protocol Last Admin: 01/11/17 07:43 Dose: Not Given Lisinopril (Prinivil Tab*) 40 mg PO DAILY [facility] Last Admin: 01/11/17 07:47 Dose: Not Given Morphine Sulfate (Morphine Inj (Syringe)*) 1 mg IV Q1H PRN PRN Reason: PAIN Last Admin: 01/11/17 06:58 Dose: 1 mg Ondansetron HCl (Zofran Inj*) 4 mg IV Q4H PRN PRN Reason: NAUSEA/VOMITING Last Admin: 01/10/17 02:45 Dose: 4 mg Pantoprazole Sodium (Protonix Iv*) 40 mg IV DAILY [facility] Last Admin: 01/11/17 07:31 Dose: 40 mg Vital Signs 01/11/17 01/11/17 01/11/17 06:58 07:27 10:01 Temperature 97.9 F Pulse Rate 75 Respiratory 18 20 Rate Blood Pressure 155/63 168/65 (mmHg) O2 Sat by Pulse 98 Oximetry Oxygen Devices in Use Now: Nasal Cannula Appearance: Pleasant lady sitting up in bed in NAD. Eyes: No Scleral Icterus Ears/Nose/Mouth/Throat: Mucous Membranes Moist Neck: Trachea Midline Respiratory: Symmetrical Chest Expansion and Respiratory Effort, Clear to Auscultation - decreased in both bases Cardiovascular: RRR - Normal S1 and S2 Abdominal: - - Soft, mild incisional tenderness, ostomy is pink Neurological: Alert and Oriented x 3, NL Muscle Strength and Tone Lines/Tubes/Other Access: Clean, Dry and Intact Peripheral IV Nutrition: Taking PO's Result Diagrams: 01/11/17 06:05 01/11/17 06:05 Assess/Plan/Problems-Billing Assessment: Mrs. Franklin is a 66yo F with PMH of HTN, tobacco abuse, PAD, type 2 DM, CVA, admitted for colon mass ressection. - Patient Problems (1) Atelectasis Comment: - Patient is a smoker as has chronic cough at baseline. - CxR shows basilar hypoventilation. - Continue to use incentive spirometry. - Suspect fever 100.9 yesterday was associated with it. No signs of infection at this time. (2) Colonic mass Comment: - S/p anterior ressection with diverting loop ileostomy. - Path shows adenocarcinoma. - Management as per Surgery. - Oncology input appreciated. (3) Type 2 diabetes mellitus Comment: - Controlled. - Continue Lantus and Lispro SS - will need to adjust when her diet is advanced. (4) HTN (hypertension) Comment: - Still uncontrolled. - Continue Atenolol and increase Lisinopril. - Continue Hydralazine IV PRN. - Continue to monitor. (5) CKD stage 3 secondary to diabetes Comment: - Renal function is stable - continue to follow. (6) Hypokalemia Comment: - Replete. (7) Hypomagnesemia Comment: - Replete. (8) DVT prophylaxis Comment: - SQ heparin. (9) Full code status Status and Disposition: Inpatient. Hospitalist service will continue to follow.
--- NOTE | 2017-01-11 11:15 | PN ---
Progress Note - Progress Note SOAP: Subjective: Feels much better this morning-slept better and she has less pain No SOB or nausea-her appetite is returning and she tolerated some broth yesterday. Objective: Tmax 100.9 Temp Pulse Resp BP Pulse Ox 97.9 F 75 20 168/65 98 01/11/17 07:27 01/11/17 07:27 01/11/17 07:27 01/11/17 10:01 01/11/17 07:27 Intake & Output 01/09/17 01/10/17 01/11/17 01/12/17 06:59 06:59 06:59 06:59 Intake Total 2995 2143 1469 Output Total 2225 4455 2000 Balance 670 -5405 -624 Intake: IV Fluids 1541 2033 989 NS (0.9%) 1541 2033 989 IVPB 1454 60 NS (0.9%) 1400 magnesium 54 60 Oral 0 50 480 Output: Urine 3480 1750 Lim 2175 700 Colostomy 50 175 Ileostomy 100 250 PEX: Comfortable Lungs with decreased breath sounds at the bases without rales or rhonchi Abd is soft and non-distended. Bowel sounds are faintly present and are not high pitched. Incision is clean and dry Ostomy is pink and edematous and has some green fluid in the bag Extremities without edema Laboratory Results - last 24 hr 01/10/17 01/10/17 01/10/17 11:32 16:38 21:31 WBC RBC Hgb Hct MCV MCH MCHC RDW Plt Count MPV Neut % (Auto) Lymph % (Auto) Harney % (Auto) Eos % (Auto) Baso % (Auto) Absolute Neuts (auto) Absolute Lymphs (auto) Absolute Monos (auto) Absolute Eos (auto) Absolute Basos (auto) Absolute Nucleated RBC Nucleated RBC % Sodium Potassium Chloride Carbon Dioxide Anion Gap BUN Creatinine Est GFR ( Amer) Est GFR (Non-Af Amer) BUN/Creatinine Ratio Glucose POC Glucose (mg/dL) 163 H 110 H 124 H Calcium Phosphorus Magnesium Total Bilirubin AST ALT Alkaline Phosphatase Total Protein Albumin Globulin Albumin/Globulin Ratio 01/11/17 01/11/17 01/11/17 06:05 06:05 07:42 WBC 10.0 RBC 4.34 Hgb 11.2 L Hct 35 MCV 80 MCH 26 L MCHC 32 RDW 16 H Plt Count 334 MPV 9 Neut % (Auto) 61.1 Lymph % (Auto) 22.4 L Harney % (Auto) 5.1 Eos % (Auto) 10.7 H Baso % (Auto) 0.7 Absolute Neuts (auto) 6.1 Absolute Lymphs (auto) 2.2 Absolute Monos (auto) 0.5 Absolute Eos (auto) 1.1 H Absolute Basos (auto) 0.1 Absolute Nucleated RBC 0 Nucleated RBC % 0 Sodium 139 Potassium 3.2 L Chloride 108 Carbon Dioxide 21 L Anion Gap 10 BUN 13 Creatinine 1.16 H Est GFR ( Amer) 60.5 Est GFR (Non-Af Amer) 47.0 BUN/Creatinine Ratio 11.2 Glucose 102 H POC Glucose (mg/dL) 102 Calcium 8.9 Phosphorus 2.8 Magnesium 1.4 L Total Bilirubin 0.30 AST 10 L ALT 9 Alkaline Phosphatase 45 Total Protein 5.4 L Albumin 2.8 L Globulin 2.6 Albumin/Globulin Ratio 1.1 Assessment: POD # 4 s/p low anterior resection with diverting loop ileostomy for colon cancer Post-op ileus-- improving HTN DM CRF Tobacco abuse Hypokalemis Plan: Advance diet as tolerated Ostomy teaching Increase activity Replete K+ Pulmonary toilet She is not ready for discharge yet-need to improve po intake and ambulate better.
[2017-01-11] MEDS: oxyCODONE/Acetamin 5/325 MG* TAB PO PRN ×2 (13:39→17:18)
[2017-01-11] MEDS ORDERED: Labetalol TAB* 100 MG PO ONE (15:53)
[2017-01-11] MEDS ORDERED: Furosemide IV* 10 MG/ML 2 ML VIAL (20 MG) IV SLOW PU ONE (15:54)
[2017-01-11] MEDS: hydrALAZINE TAB* 25 MG PO SCH ×2 (18:18→21:45)
[2017-01-11] MEDS: Insulin GLARGINE(*) 1 UNITS UNIT SUBCUT SCH (21:54)
[2017-01-12] MEDS: Labetalol TAB* 100 MG PO SCH ×3 (00:15→21:44)
[2017-01-12] MEDS: hydrALAZINE IV* 20 MG/ML VIAL IV SLOW PU PRN (05:40)
[2017-01-12] MEDS: Heparin VIAL(*) 5000 UNITS/ML VIAL (FIVE THOUSAND) SUBCUT SCH ×3 (05:40→21:46)
[2017-01-12 07:20] LABS: BUN/Creatinine Ratio 10.6 (8-20); Calcium 8.9 mg/dL (8.6-10.3); EGFR African American 56.5 (>60); Magnesium 1.3 mg/dL (1.9-2.7); Potassium 3.4 mmol/L (3.5-5.0)
--- NOTE | 2017-01-12 08:12 | PN ---
Progress Note - Progress Note Note: Surgery Ms. Franklin denies complaints, says she is eating pretty well. There is flatus and stool passing into the bag. Vital Signs 01/11/17 01/11/17 01/11/17 10:01 11:41 13:22 Temperature 98.0 F Pulse Rate 70 Respiratory 16 Rate Blood Pressure 168/65 154/56 197/70 (mmHg) O2 Sat by Pulse 99 Oximetry 01/11/17 01/11/17 01/11/17 13:39 15:31 16:33 Temperature 97.8 F Pulse Rate 70 68 Respiratory 16 17 Rate Blood Pressure 182/70 127/55 (mmHg) O2 Sat by Pulse 98 Oximetry 01/11/17 01/11/17 01/11/17 17:18 17:39 18:11 Temperature Pulse Rate 89 Respiratory 16 15 Rate Blood Pressure 112/54 (mmHg) O2 Sat by Pulse Oximetry 01/11/17 01/11/17 01/11/17 19:18 19:29 20:25 Temperature 97.9 F Pulse Rate 79 Respiratory 16 17 15 Rate Blood Pressure 127/56 (mmHg) O2 Sat by Pulse 99 Oximetry 01/11/17 01/12/17 01/12/17 23:14 01:02 03:29 Temperature 97.9 F 98.2 F 98.6 F Pulse Rate 76 79 82 Respiratory 15 17 17 Rate Blood Pressure 143/61 155/62 164/61 (mmHg) O2 Sat by Pulse 96 97 95 Oximetry 01/12/17 05:14 Temperature 98.0 F Pulse Rate 75 Respiratory 14 Rate Blood Pressure 170/61 (mmHg) O2 Sat by Pulse 96 Oximetry Abd: soft, tender near incision, diminished BS incision: clean and dry except for a small open area in center of incision. This is clean, but without much granulation. Intake & Output 01/11/17 01/12/17 01/12/17 22:59 06:59 14:59 Intake Total 1514 0 Output Total 1050 475 Balance 464 -475 Intake: IV Fluids 1032 0 NS (0.9%) 1032 potassium 0 0 IVPB 122 potassium 122 Oral 360 0 Output: Urine 1050 475 Ileostomy 0 Laboratory Results - last 24 hr 01/11/17 01/11/17 01/11/17 12:08 16:35 21:45 Sodium Potassium Chloride Carbon Dioxide Anion Gap BUN Creatinine Est GFR ( Amer) Est GFR (Non-Af Amer) BUN/Creatinine Ratio Glucose POC Glucose (mg/dL) 194 H 137 H 222 H Calcium Magnesium 01/12/17 06:41 Sodium 138 Potassium 3.4 L Chloride 106 Carbon Dioxide 22 Anion Gap 10 BUN 13 Creatinine 1.23 H Est GFR ( Amer) 56.5 Est GFR (Non-Af Amer) 44.0 BUN/Creatinine Ratio 10.6 Glucose 128 H POC Glucose (mg/dL) Calcium 8.9 Magnesium 1.3 L A/P: POD#5 s/p sigmoid resection; making progress. Will replete Mg and K+, repeat labs in a couple of days. Encourage ambulation, po intake.
[2017-01-12] MEDS: oxyCODONE/Acetamin 5/325 MG* TAB PO PRN ×3 (08:19→21:50)
[2017-01-12] MEDS: Insulin LISPRO* 1 UNITS UNIT SUBCUT SCH ×4 (08:20→21:45)
[2017-01-12] MEDS: hydrALAZINE TAB* 25 MG PO SCH ×3 (08:20→21:45)
[2017-01-12] MEDS: Lisinopril TAB* 10 MG PO SCH (08:20)
[2017-01-12] MEDS ORDERED: Potassium Chloride LIQUID* 20 MEQ PACKET PO SCH (09:00)
[2017-01-12] MEDS ORDERED: Magnesium Sulf 4 GM/100 ML IV* 4,000 MG/100 ML BAG IVPB ONE (10:00)
[2017-01-12] MEDS: Magnesium Oxide TAB* 400 MG PO SCH (10:14)
[2017-01-12] MEDS: Potassium Chloride LIQUID* 20 MEQ PACKET PO SCH (10:14)
[2017-01-12] MEDS: Pantoprazole IV* 40 MG IV SCH (10:14)
--- NOTE | 2017-01-12 12:51 | PN ---
Subjective Date of Service: 01/12/17 Interval History: HOSPITALIST PROGRESS NOTE Patient seen and examined at bedside. In very good spirits today, happy she had cream of wheat for breakfast. We walked around the unit and she did well, holding on to rails. Pain is well controlled and cough is improved. Family History: Unchanged from Admission Social History: Unchanged from Admission Past Medical History: Unchanged from Admission Objective Active Medications: Acetaminophen (Tylenol Tab*) 650 mg PO Q4H PRN PRN Reason: Pain Or Temperature >101 F Dextrose (D50w Syringe 50 Ml*) 12.5 gm IV PUSH .FOR FS < 60 - SS PRN PRN Reason: FS < 60 Docusate Sodium (Colace Cap*) 100 mg PO BID PRN PRN Reason: CONSTIPATION Guaifenesin/Dextromethorphan (Robitussin Dm*) 5 ml PO Q4H PRN PRN Reason: COUGH Heparin Sodium (Porcine) (Heparin Vial(*)) 5,000 units SUBCUT Q8HR [facility] Last Admin: 01/12/17 05:40 Dose: 5,000 units Hydralazine HCl (Apresoline Iv*) 10 mg IV SLOW PU Q2H PRN PRN Reason: SBP>180 Last Admin: 01/11/17 15:49 Dose: 10 mg Hydralazine HCl (Apresoline Tab*) 25 mg PO TID [facility] Last Admin: 01/12/17 08:20 Dose: 25 mg Magnesium Sulfate (Magnesium Sulf 4 Gm/100 Ml Iv*) 4,000 mg in 100 mls @ 33.333 mls/hr IVPB ONCE ONE Stop: 01/12/17 12:59 Last Admin: 01/12/17 10:04 Dose: 33.333 mls/hr Potassium Chloride (Potassium Chloride 10 Meq/50 Ml Ivpremix*) 10 meq in 50 mls @ 50 mls/hr IV Q1H [facility] Stop: 01/12/17 12:59 Insulin Glargine (Lantus(*)) 20 units SUBCUT BEDTIME [facility] Last Admin: 01/11/17 21:54 Dose: 20 units Insulin Human Lispro (Humalog*) 0 units SUBCUT ACHS [facility] PRN Reason: Protocol Last Admin: 01/12/17 08:20 Dose: 1 units Labetalol HCl (Trandate Tab*) 100 mg PO BID [facility] Last Admin: 01/12/17 08:20 Dose: 100 mg Lisinopril (Prinivil Tab*) 40 mg PO DAILY [facility] Last Admin: 01/12/17 08:20 Dose: 40 mg Magnesium Oxide (Magox 400 Tab*) 400 mg PO DAILY [facility] Last Admin: 01/12/17 10:14 Dose: 400 mg Morphine Sulfate (Morphine Inj (Syringe)*) 1 mg IV Q1H PRN PRN Reason: PAIN Last Admin: 01/11/17 06:58 Dose: 1 mg Ondansetron HCl (Zofran Inj*) 4 mg IV Q4H PRN PRN Reason: NAUSEA/VOMITING Last Admin: 01/10/17 02:45 Dose: 4 mg Oxycodone/Acetaminophen (Percocet 5/325 Tab*) 1 tab PO Q4H PRN PRN Reason: PAIN Last Admin: 01/12/17 08:19 Dose: 1 tab Pantoprazole Sodium (Protonix Iv*) 40 mg IV DAILY [facility] Last Admin: 01/12/17 10:14 Dose: 40 mg Potassium Chloride (Klor-Con Liquid*) 40 meq PO DAILY [facility] Last Admin: 01/12/17 10:14 Dose: 40 meq Vital Signs 01/12/17 12:17 Temperature 97.7 F Pulse Rate 77 Respiratory 18 Rate Blood Pressure 138/63 (mmHg) O2 Sat by Pulse 98 Oximetry Oxygen Devices in Use Now: None Appearance: Pleasant lady sitting up in a chair in [facility]. Eyes: No Scleral Icterus Ears/Nose/Mouth/Throat: Mucous Membranes Moist Neck: Trachea Midline Respiratory: Symmetrical Chest Expansion and Respiratory Effort, Clear to Auscultation Cardiovascular: RRR - Normal S1 and S2 Abdominal: - - Soft, mild incisional tenderness, NG, NR, ostomy is pink with liquid stool in the bag Extremities: - - Mild LE josee Neurological: Alert and Oriented x 3, NL Muscle Strength and Tone Lines/Tubes/Other Access: Clean, Dry and Intact Peripheral IV Nutrition: Taking PO's Result Diagrams: 01/11/17 06:05 01/12/17 06:41 Assess/Plan/Problems-Billing Assessment: Mrs. Franklin is a 66yo F with PMH of HTN, tobacco abuse, PAD, type 2 DM, CVA, admitted for colon mass ressection. - Patient Problems (1) Atelectasis Comment: - Patient is a smoker as has chronic cough at baseline. - CxR shows basilar hypoventilation. - Continue to use incentive spirometry. (2) Colonic mass Comment: - S/p anterior ressection with diverting loop ileostomy. - Path shows adenocarcinoma. - Management as per Surgery. - Oncology input appreciated. (3) Type 2 diabetes mellitus Comment: - Controlled. - As PO intake is increasing, will increase Lantus to 25 units and continue Lispro SS. (4) HTN (hypertension) Comment: - Better controlled. - Continue Atenolol, Lisinopril, and hydralazine. - Continue Hydralazine IV PRN. - Lasix one dose today. (5) CKD stage 3 secondary to diabetes Comment: - Renal function is stable - continue to follow. (6) Hypokalemia Comment: - Replete. (7) Hypomagnesemia Comment: - Replete. (8) DVT prophylaxis Comment: - SQ heparin. (9) Full code status Status and Disposition: Inpatient. Hospitalist service will continue to follow.
[2017-01-12] MEDS ORDERED: Furosemide IV* 10 MG/ML 2 ML VIAL (20 MG) IV SLOW PU ONE (12:54)
[2017-01-12] MEDS: KCL 10 MEQ/50 ML IVPREMIX* 10 MEQ/50 ML BAG IV SCH ×2 (13:27→16:31)
[2017-01-12] MEDS ORDERED: KCL 10 MEQ/50 ML IVPREMIX* 10 MEQ/50 ML BAG ONE (14:00)
[2017-01-12] MEDS ORDERED: Ondansetron TAB* 4 MG PO PRN (21:45)
[2017-01-12] MEDS: Insulin GLARGINE(*) 1 UNITS UNIT SUBCUT SCH (21:45)
[2017-01-13] MEDS: Heparin VIAL(*) 5000 UNITS/ML VIAL (FIVE THOUSAND) SUBCUT SCH ×3 (05:50→21:00)
[2017-01-13] MEDS: oxyCODONE/Acetamin 5/325 MG* TAB PO PRN ×3 (07:47→20:02)
[2017-01-13] MEDS: Lisinopril TAB* 10 MG PO SCH (08:13)
[2017-01-13] MEDS: Magnesium Oxide TAB* 400 MG PO SCH (08:14)
[2017-01-13] MEDS: Potassium Chloride LIQUID* 20 MEQ PACKET PO SCH (08:14)
[2017-01-13] MEDS: Labetalol TAB* 100 MG PO SCH ×2 (08:14→20:57)
[2017-01-13] MEDS: hydrALAZINE TAB* 25 MG PO SCH ×3 (08:14→20:58)
[2017-01-13] MEDS: Insulin LISPRO* 1 UNITS UNIT SUBCUT SCH ×4 (08:19→20:58)
[2017-01-13] MEDS: Omeprazole CAP* 20 MG PO SCH (08:25)
--- NOTE | 2017-01-13 08:40 | PN ---
Progress Note - Progress Note Note: Surgery Ms. Franklin declined labs this morning, but feels she is doing well. She emptied the bag herself, tolerated a diet and ambulated a lot. Vital Signs 01/12/17 01/12/17 01/12/17 10:19 10:26 12:17 Temperature 97.7 F 97.7 F Pulse Rate 82 77 Respiratory 20 18 18 Rate Blood Pressure 116/48 138/63 (mmHg) O2 Sat by Pulse 97 98 Oximetry 01/12/17 01/12/17 01/12/17 13:35 15:35 15:53 Temperature 97.6 F Pulse Rate 72 Respiratory 20 18 18 Rate Blood Pressure 128/60 (mmHg) O2 Sat by Pulse 99 Oximetry 01/12/17 01/12/17 01/12/17 16:00 18:10 19:23 Temperature 97.4 F Pulse Rate 81 Respiratory 17 Rate Blood Pressure 141/65 (mmHg) O2 Sat by Pulse 95 95 97 Oximetry 01/12/17 01/12/17 01/12/17 19:47 21:50 23:50 Temperature Pulse Rate Respiratory 16 16 16 Rate Blood Pressure (mmHg) O2 Sat by Pulse Oximetry 01/13/17 01/13/17 01/13/17 00:00 00:12 03:56 Temperature 97.5 F 97.8 F Pulse Rate 74 88 Respiratory 16 16 Rate Blood Pressure 121/56 153/63 (mmHg) O2 Sat by Pulse 98 95 98 Oximetry 01/13/17 01/13/17 07:47 08:00 Temperature 97.5 F Pulse Rate 79 Respiratory 18 18 Rate Blood Pressure 183/87 (mmHg) O2 Sat by Pulse 100 Oximetry Abd: good BS, soft, non-tender Dressing shows minimal drainage over open area,other areas of incision are intact without signs infection Intake & Output 01/12/17 01/13/17 01/13/17 22:59 06:59 14:59 Intake Total 780 300 Output Total 1725 1200 Balance -945 -900 Intake: Oral 780 300 Output: Urine 1500 1000 Ileostomy 225 200 Laboratory Results - last 24 hr 01/12/17 01/12/17 01/12/17 07:44 12:18 16:57 POC Glucose (mg/dL) 141 H 265 H 223 H 01/12/17 01/13/17 20:57 07:43 POC Glucose (mg/dL) 254 H 168 H A/P: Improving, check labs in AM, consider d/c if doing well.
--- NOTE | 2017-01-13 09:50 | PN ---
Subjective Date of Service: 01/13/17 Interval History: HOSPITALIST PROGRESS NOTE Patient seen and examined at bedside. She's in good spirits today. Pain is controlled, excited to try soft diet for breakfast. Very proud she was able to manage her ostomy bag. Family History: Unchanged from Admission Social History: Unchanged from Admission Past Medical History: Unchanged from Admission Objective Active Medications: Acetaminophen (Tylenol Tab*) 650 mg PO Q4H PRN PRN Reason: Pain Or Temperature >101 F Dextrose (D50w Syringe 50 Ml*) 12.5 gm IV PUSH .FOR FS < 60 - SS PRN PRN Reason: FS < 60 Docusate Sodium (Colace Cap*) 100 mg PO BID PRN PRN Reason: CONSTIPATION Guaifenesin/Dextromethorphan (Robitussin Dm*) 5 ml PO Q4H PRN PRN Reason: COUGH Heparin Sodium (Porcine) (Heparin Vial(*)) 5,000 units SUBCUT Q8HR [facility] Last Admin: 01/13/17 05:50 Dose: 5,000 units Hydralazine HCl (Apresoline Iv*) 10 mg IV SLOW PU Q2H PRN PRN Reason: SBP>180 Last Admin: 01/11/17 15:49 Dose: 10 mg Hydralazine HCl (Apresoline Tab*) 25 mg PO TID [facility] Last Admin: 01/13/17 08:14 Dose: 25 mg Insulin Glargine (Lantus(*)) 25 units SUBCUT BEDTIME [facility] Last Admin: 01/12/17 21:45 Dose: 25 unit Insulin Human Lispro (Humalog*) 0 units SUBCUT ACHS [facility] PRN Reason: Protocol Last Admin: 01/13/17 08:19 Dose: 2 units Labetalol HCl (Trandate Tab*) 100 mg PO BID [facility] Last Admin: 01/13/17 08:14 Dose: 100 mg Lisinopril (Prinivil Tab*) 40 mg PO DAILY [facility] Last Admin: 01/13/17 08:13 Dose: 40 mg Magnesium Oxide (Magox 400 Tab*) 400 mg PO DAILY [facility] Last Admin: 01/13/17 08:14 Dose: 400 mg Morphine Sulfate (Morphine Inj (Syringe)*) 1 mg IV Q1H PRN PRN Reason: PAIN Last Admin: 01/11/17 06:58 Dose: 1 mg Omeprazole (Prilosec Cap*) 20 mg PO DAILY [facility] Last Admin: 01/13/17 08:25 Dose: 20 mg Ondansetron HCl (Zofran Tab*) 4 mg PO Q4H PRN PRN Reason: NAUSEA/VOMITING Oxycodone/Acetaminophen (Percocet 5/325 Tab*) 1 tab PO Q4H PRN PRN Reason: PAIN Last Admin: 01/13/17 07:47 Dose: 1 tab Potassium Chloride (Klor-Con Liquid*) 40 meq PO DAILY [facility] Last Admin: 01/13/17 08:14 Dose: 40 meq Vital Signs 01/13/17 01/13/17 01/13/17 00:00 00:12 03:56 Temperature 97.5 F 97.8 F Pulse Rate 74 88 Respiratory 16 16 Rate Blood Pressure 121/56 153/63 (mmHg) O2 Sat by Pulse 98 95 98 Oximetry 01/13/17 01/13/17 07:47 08:00 Temperature 97.5 F Pulse Rate 79 Respiratory 18 18 Rate Blood Pressure 183/87 (mmHg) O2 Sat by Pulse 100 Oximetry Oxygen Devices in Use Now: None Appearance: Pleasant lady sitting up in a chair in [facility]. Eyes: No Scleral Icterus Ears/Nose/Mouth/Throat: Mucous Membranes Moist Neck: Trachea Midline Respiratory: Symmetrical Chest Expansion and Respiratory Effort, Clear to Auscultation Cardiovascular: RRR - Normal S1 and S2 Abdominal: - - Soft, mild incisional tenderness, NG, NR, BS+, working ostomy Neurological: Alert and Oriented x 3, NL Muscle Strength and Tone Nutrition: Taking PO's Result Diagrams: 01/11/17 06:05 01/12/17 06:41 Assess/Plan/Problems-Billing Assessment: Mrs. Franklin is a 66yo F with PMH of HTN, tobacco abuse, PAD, type 2 DM, CVA, admitted for colon mass ressection. - Patient Problems (1) Atelectasis Comment: - Patient is a smoker as has chronic cough at baseline. - CxR shows basilar hypoventilation. - Continue to use incentive spirometry. (2) Colonic mass Comment: - S/p anterior ressection with diverting loop ileostomy. - Path shows adenocarcinoma. - Management as per Surgery. - Oncology input appreciated. (3) Type 2 diabetes mellitus Comment: - Controlled. - Continue Lantus 25 units and Lispro SS. - Resume Metformin. (4) HTN (hypertension) Comment: - Better controlled. - Continue Atenolol, Lisinopril, hydralazine, and add Furosemide in place of chlortalidone. - Continue Hydralazine IV PRN. (5) CKD stage 3 secondary to diabetes Comment: - Renal function is stable - continue to follow. (6) DVT prophylaxis Comment: - SQ heparin. (7) Full code status Status and Disposition: Inpatient. Hospitalist service will continue to follow.
[2017-01-13] MEDS: Furosemide TAB* 20 MG PO SCH (11:33)
[2017-01-13] MEDS: metFORMIN* 500 MG TAB PO SCH (16:51)
[2017-01-13] MEDS: Insulin GLARGINE(*) 1 UNITS UNIT SUBCUT SCH (20:58)
[2017-01-14] MEDS: Heparin VIAL(*) 5000 UNITS/ML VIAL (FIVE THOUSAND) SUBCUT SCH ×2 (06:39→13:44)
[2017-01-14 07:38] LABS: BUN/Creatinine Ratio 9.4 (8-20); Calcium 9.4 mg/dL (8.6-10.3); EGFR Non-African American 32.7 (>60); Magnesium 1.8 mg/dL (1.9-2.7); Potassium 4.6 mmol/L (3.5-5.0)
[2017-01-14] MEDS: Potassium Chloride LIQUID* 20 MEQ PACKET PO SCH (08:03)
[2017-01-14] MEDS: Omeprazole CAP* 20 MG PO SCH (08:05)
[2017-01-14] MEDS: hydrALAZINE TAB* 25 MG PO SCH ×2 (08:05→13:44)
[2017-01-14] MEDS: Furosemide TAB* 20 MG PO SCH (08:05)
[2017-01-14] MEDS: Magnesium Oxide TAB* 400 MG PO SCH (08:05)
[2017-01-14] MEDS: metFORMIN* 500 MG TAB PO SCH (08:05)
[2017-01-14] MEDS: Labetalol TAB* 100 MG PO SCH (08:05)
[2017-01-14] MEDS: Lisinopril TAB* 10 MG PO SCH (08:05)
[2017-01-14] MEDS ORDERED: Ketorolac INJ* 15 MG/ML 1 ML VIAL IV PUSH PRN (08:31)
[2017-01-14] MEDS: oxyCODONE/Acetamin 5/325 MG* TAB PO PRN (09:02)
[2017-01-14] MEDS: Insulin LISPRO* 1 UNITS UNIT SUBCUT SCH ×2 (10:15→13:45)
--- NOTE | 2017-01-14 10:22 | PN ---
Progress Note - Progress Note SOAP: Subjective: Doing much better Tolerating regular diet She feels comfortable with her ostomy care Pain is adequately controlled Objective: Temp Pulse Resp BP Pulse Ox 97.5 F 93 16 136/58 96 01/14/17 03:31 01/14/17 03:31 01/14/17 09:02 01/14/17 03:31 01/14/17 03:31 Intake & Output 01/12/17 01/13/17 01/14/17 01/15/17 06:59 06:59 06:59 06:59 Intake Total 1724 2530 1670 Output Total 2275 3075 1500 Balance -551 -545 170 Intake: IV Fluids 1032 150 NS (0.9%) 1032 50 magnesium 100 potassium 0 IVPB 122 potassium 122 Oral 570 2380 1670 Output: Urine 2125 2500 900 Colostomy 300 Ileostomy 150 575 300 PEX: Comfortable Lungs are CTA Abd is soft and non-distended. Bowel sounds are present. Incision is clean and dry. Ostomy is pink and healthy and there is greeni fluid in the bag Extremoties without edema Assessment: POD # 7 s/p low anterior resection with ileostomy for colon cancer Multiple medial issues Plan: D/C home today Ostomy instructions and Rx Office follow up.
--- NOTE | 2017-01-14 10:34 | PN ---
Progress Note - Progress Note SOAP: Subjective: []Better. Leak around ostomy. Discharge today. Pain controlled. Acetaminophen (Tylenol Tab*) 650 mg PO Q4H PRN PRN Reason: Pain Or Temperature >101 F Dextrose (D50w Syringe 50 Ml*) 12.5 gm IV PUSH .FOR FS < 60 - SS PRN PRN Reason: FS < 60 Docusate Sodium (Colace Cap*) 100 mg PO BID PRN PRN Reason: CONSTIPATION Furosemide (Lasix Tab*) 20 mg PO DAILY [facility] Last Admin: 01/14/17 08:05 Dose: 20 mg Guaifenesin/Dextromethorphan (Robitussin Dm*) 5 ml PO Q4H PRN PRN Reason: COUGH Heparin Sodium (Porcine) (Heparin Vial(*)) 5,000 units SUBCUT Q8HR [facility] Last Admin: 01/14/17 06:39 Dose: 5,000 units Hydralazine HCl (Apresoline Iv*) 10 mg IV SLOW PU Q2H PRN PRN Reason: SBP>180 Last Admin: 01/11/17 15:49 Dose: 10 mg Hydralazine HCl (Apresoline Tab*) 25 mg PO TID [facility] Last Admin: 01/14/17 08:05 Dose: 25 mg Insulin Glargine (Lantus(*)) 25 units SUBCUT BEDTIME [facility] Last Admin: 01/13/17 20:58 Dose: 25 unit Insulin Human Lispro (Humalog*) 0 units SUBCUT ACHS [facility] PRN Reason: Protocol Last Admin: 01/14/17 10:15 Dose: 2 units Labetalol HCl (Trandate Tab*) 100 mg PO BID [facility] Last Admin: 01/14/17 08:05 Dose: 100 mg Lisinopril (Prinivil Tab*) 40 mg PO DAILY [facility] Last Admin: 01/14/17 08:05 Dose: 40 mg Magnesium Oxide (Magox 400 Tab*) 400 mg PO DAILY [facility] Last Admin: 01/14/17 08:05 Dose: 400 mg Morphine Sulfate (Morphine Inj (Syringe)*) 1 mg IV Q1H PRN PRN Reason: PAIN Last Admin: 01/11/17 06:58 Dose: 1 mg Omeprazole (Prilosec Cap*) 20 mg PO DAILY [facility] Last Admin: 01/14/17 08:05 Dose: 20 mg Ondansetron HCl (Zofran Tab*) 4 mg PO Q4H PRN PRN Reason: NAUSEA/VOMITING Oxycodone/Acetaminophen (Percocet 5/325 Tab*) 1 tab PO Q4H PRN PRN Reason: PAIN Last Admin: 01/14/17 09:02 Dose: 1 tab Potassium Chloride (Klor-Con Liquid*) 40 meq PO DAILY [facility] Last Admin: 01/14/17 08:03 Dose: 40 meq Objective: [] Vital Signs Temp Pulse Resp BP Pulse Ox 97.7 F 81 16 154/72 96 01/14/17 07:34 01/14/17 07:34 01/14/17 09:02 01/14/17 07:34 01/14/17 07:34 HEENT - Mucosa moist CTA RRR S1S2 BS+, leaking around appliance, has some diarrhea. Assessment: []66 year old with sigmoid mass and solitary pulmonary nodule. Resection of the sigmoid mass, T2 N0 with [address] removed. Plan: []1. Discharge from home today and we will follow up in clinic 2 weeks. 2. Colorectal caner. Sigmoid colon tumor. She has early stage disease pending evaluation of lung nodule. 3. Lung lesion. Ddx: solitary metastatic lesion from colon, primary lung cancer. She has refused biopsy, family is more encouraging for procedure. For metastatic colon cancer, would plan VATS resection followed by adjuvant chemotherapy. If she has a primary lung cancer she would need a formal lobectomy and may not need adjuvant chemotherapy.
--- NOTE | 2017-01-14 12:13 | PN ---
Hospitalist Progress Note HOSPITALIST ADDENDUM Patient was very anxious earlier today while changing her ostomy bag. Plan is for discharge as per surgery. Would d/c home on her prior home medications, except metformin due to her renal function.
[2017-01-14 15:58] VITALS: BP 150/70
--- NOTE | 2017-01-18 10:36 | DS ---
CC: Dr. Vera; Dr. Patrice Calabrese DISCHARGE SUMMARY: DATE OF ADMISSION: 01/07/17 DATE OF DISCHARGE: 01/14/17 ADMISSION DIAGNOSIS: Near obstructing mass of the sigmoid colon. DISCHARGE DIAGNOSIS: Near obstructing mass of the sigmoid colon. ADMITTING PHYSICIAN: Eleno Crowell MD CONSULTATIONS: Dr. Marilyn Vera and Dr. Patrcie Calabrese. PROCEDURES: Low anterior rectosigmoid resection with diverting loop ileostomy on 01/07/17. HISTORY OF PRESENT ILLNESS: Ms. Franklin is a pleasant 66-year-old female who unfortunately was found to have a large nearly obstructing mass of the rectosigmoid colon on an incidental PET scan. Appar ently, the patient was found to have an ischemic left fifth toe for which she underwent a CTA for ev aluation that showed right lower lobe lesion of concern and a biopsy was attempted of the lesion but was nondiagnostic after which the patient had to be scheduled for a subsequent PET scan. She had a PET scan that revealed a separate lesion of the rectosigmoid area for which the patient underwent a n attempted colonoscopy back in December of this year. Dr. Hutchinson discovered a near obstructing malig nant-appearing lesion approximately 15 cm from the anus showing multiple biopsies with tubulovillous adenoma with high dysplasia. Given her findings on the colonoscopy and the PET scan, the patient w as seen in the office to discuss possible resection of the colon. Despite having her near obstructi ng lesion, she denied any bright red blood per rectum, melena, tarry stools, or any other associated symptoms. She was seen in the office by Dr. Crowell who reviewed the workup and examined the pat ient, discussing with her the indication and the benefits as well as the risks of undergoing an expl oratory laparotomy with rectosigmoid low anterior resection. The patient understood the plan and wi shed to proceed as outlined to resect the major bulk of her rectosigmoid mass. HOSPITAL COURSE: The patient was admitted on the same day in anticipation for surgery. She went to the operating room on 01/07/17 where she had a low anterior rectosigmoid resection with primary juvenal stomosis as well as a diverting loop ileostomy. Her surgery went quite smoothly with no immediate p ostoperative complications. She was taken to the surgical stay unit postoperatively where she had h er pain managed well using CARE SUPPORT REPRESENTATIVE as needed. On the first day postoperatively, she had minimal pain an d no trouble breathing. She denied any nausea or vomiting. Her exam was essentially unremarkable sh owing a clean and intact dressing as well as a viable pink ostomy with green thick fluid already in the bag. Her laboratory workup was checked revealing white count of 12,400, hemoglobin of 10.7, and hematocrit of 33. Her chemistries showed mild hypokalemia that was replaced using KCl IV runs per protocol. The patient was ambulatory out of bed. She had mild postoperative ileus for which she wa s encouraged to get out of bed and ambulate. She was covered with PPI for GI prophylaxis as well as subcu heparin for DVT prophylaxis. She also noted to have a slightly low magnesium for which it was replaced using IV runs. A Lim catheter was placed postoperatively to monitor her urine output fo r another 24 hours. On the second day postoperatively, the patient continued to improve. She slept better and her pain was well under control using her CARE SUPPORT REPRESENTATIVE. Her I's and O's were adequate. Her abdo monty exam continued to show no concerns regarding any postoperative complication. Her incision was clean and dry and she started to have hypoactive bowel sounds on the second day. Her ostomy remain ed viable with some thick green residue in the bag. She started on clear liquid diet on that day an d it was advanced slowly as tolerated. Her Lim catheter was discontinued on the second day postop eratively and her hypokalemia was replaced using IV runs as well. The patient had the pathology rep ort available and Dr. Crowell was available to discuss her pathology report with the patient and h er partner. Her postoperative ileus continued to improve on the third day postoperatively as she am bulated more and more. Her nausea and vomiting were essentially gone and her pain was well under co ntrol for which her CARE SUPPORT REPRESENTATIVE was discontinued and will start using oral pain medication as needed. Her o stomy continued to look viable and her laboratory workup showed resolution of her leukocytosis and s tability of hemoglobin and hematocrit with values of 11.6 and 36 respectively. Her chemistries were rechecked again showing normal potassium and magnesium levels. She continued to improve and given some mild coughing episodes, a chest x-ray was checked on that third day postoperatively. [facility] consultation was obtained to manage the patient's medical issues. Given her known history of GENERAL INTERNAL MEDICINE DOCTOR D, the patient's x-ray was checked as mentioned above showing only possibility of atelectasis postop eratively. She had a low-grade fever on the fourth day postop with temperature maximum of 100.9 for which antibiotics intravenously were continued for another day. Her abdominal exam and stoma remai cate unchanged and viable. Her diet was advanced and her electrolytes were replaced accordingly. Reddy landry was not quite ready to be discharged given her medical issues for which the patient stayed for ano ther couple of days for close observation. She continued to improve on the following 2 days. She w as tolerating a regular diet on a regular basis. She received adequate stoma care teaching from the nursing staff here and her pain was adequately controlled using p.o. medication as needed. On the discharge morning, the patient was doing very well, ambulatory, and virtually pain free. We discuss ed with her the followup plans to be seen in the office next week. As mentioned, she received a goo d stoma care and she was provided with supplies and nursing visits at home for a followup. She will be discharged to home today, 01/14/17, with ostomy instruction and a script for some pain medicatio n as needed and she will follow up with us at the surgical office next week to remove the tad an d discuss further plans. DISCHARGE MEDICATIONS: Include: 1. Atenolol 1 tablet q.a.m. 2. Insulin 100 units per mL 24 to 30 units subcu as indicated per sliding scale. 3. Lisinopril 40 mg tablet daily. 4. Percocet 1 to 2 tablets as needed for pain. PROBLEM LIST: 1. Nearly obstructing rectosigmoid mass, status post exploratory laparotomy with low anterior recto sigmoid resection with primary anastomosis and diverting ileostomy on 01/07/17. 2. Hypokalemia, replaced and stable during this hospitalization. 3. Hypomagnesemia, replaced and stable during her hospitalization. 4. Hypertension, stable. DAVID POSEY [id number]/[facility] #: [id number]
== END 2017-01-14 17:15 | disposition home health service (06) | DRG 221 ==
LOC: AA 06:20 → SSU 14:15
PROVIDERS: ADMIT Surgery; ATTEND Surgery
PROC: 0D1B0Z4 Bypass Ileum to Cutaneous, Open Approach (ICD-10-PCS; 2017-01-07)
PROC: 0DBN0ZZ Excision of Sigmoid Colon, Open Approach (ICD-10-PCS; 2017-01-07)
PROC: 0DBP0ZZ Excision of Rectum, Open Approach (ICD-10-PCS; principal; 2017-01-07 07:45)
DX: C19 Malignant neoplasm of rectosigmoid junction (principal); K56.7 Ileus, unspecified; E11.22 Type 2 diabetes mellitus with diabetic chronic kidney disease; E11.51 Type 2 diabetes mellitus with diabetic peripheral angiopathy without gangrene; E83.42 Hypomagnesemia; J98.11 Atelectasis; K94.13 Enterostomy malfunction; F17.200 Nicotine dependence, unspecified, uncomplicated; I12.9 Hypertensive chronic kidney disease with stage 1 through stage 4 chronic kidney disease, or unspecified chronic kidney disease; N18.3 Chronic kidney disease, stage 3 (moderate); R91.1 Solitary pulmonary nodule; E87.6 Hypokalemia; Y83.3 Surgical operation with formation of external stoma as the cause of abnormal reaction of the patient, or of later complication, without mention of misadventure at the time of the procedure; Y73.1 Therapeutic (nonsurgical) and rehabilitative gastroenterology and urology devices associated with adverse incidents; Z86.73 Personal history of transient ischemic attack (TIA), and cerebral infarction without residual deficits; Z98.51 Tubal ligation status; Z88.0 Allergy status to penicillin; Z79.84 Long term (current) use of oral hypoglycemic drugs
CPT/HCPCS: 36415; 71020; 80048; 80053; 83036; 83735; 84100; 85025; 88309; 94760; 99232; A9270-GY; J0360; J1100; J1170; J1335; J1644; J1885; J1940; J2250; J2270; J2405; J2704; J3010; J3480

== ENCOUNTER 2017-01-14 23:16 | Emergency (ER) | payer BC ==
[2017-01-14 23:20] VITALS: BP 159/67
== END 2017-01-15 01:52 | disposition left against medical advice (07) ==
LOC: ED 23:16
DX: K94.03 Colostomy malfunction (principal); Z53.21 Procedure and treatment not carried out due to patient leaving prior to being seen by health care provider

== ENCOUNTER 2017-01-20 11:36 | Emergency (ER) | payer BC ==
[2017-01-20 13:24] VITALS: BP 98/57
== END 2017-01-20 13:55 | disposition left against medical advice (07) ==
LOC: ED 11:36
DX: R07.89 Other chest pain (principal)
CPT/HCPCS: 99282

== ENCOUNTER 2017-03-08 06:24 | Inpatient (IN) | payer BC ==
[2017-03-08 06:44] LABS: Hematocrit 40 % (35-47); Hemoglobin 13.6 g/dl (12.0-16.0); Mean Corpuscular HGB Conc 34 g/dl (31-36); Mean Corpuscular Hemoglobin 27 pg (27-31); Mean Corpuscular Volume 79 fL (80-97); Mean Platelet Volume 8 um3 (7.4-10.4); Red Blood Count 5.03 10^6/ul (4.0-5.4); Red Cell Distribution Width 16 % (10.5-15); White Blood Count 11.8 10^3/ul (3.5-10.8)
[2017-03-08 06:58] LABS: Albumin 4.1 g/dL (3.2-5.2); BUN/Creatinine Ratio 24.2 (8-20); Calcium 10.2 mg/dL (8.6-10.3); EGFR African American 25.6 (>60); EGFR Non-African American 19.9 (>60); Globulin 3.2 g/dL (2-4); Potassium 3.6 mmol/L (3.5-5.0); Total Bilirubin 0.4 mg/dL (0.2-1.0); Total Protein 7.3 g/dL (6.4-8.9)
[2017-03-08] MEDS ORDERED: NS 0.9% 1000 ML* 1,000 ML IV ONE (07:30)
[2017-03-08] MEDS ORDERED: Ondansetron INJ* 2 MG/ML VIAL IV PRN (09:04)
[2017-03-08] MEDS ORDERED: oxyCODONE/Acetamin 5/325 MG* TAB PO PRN (09:04)
[2017-03-08] MEDS ORDERED: Acetaminophen TAB* 325 MG PO PRN (09:04)
--- NOTE | 2017-03-08 09:17 | ED ---
Jackson Pierce Salem, scribed for Isidro Thompson MD on 03/08/17 at 0729 . Dizziness - HPI Summary HPI Summary: Patient is a 66 y/o F who presents to the ED with fatigue and lightheadedness for the past 24 hours. She reports loss of balance, dizziness, vomiting, nausea (decreased in severity since onset), and weakness in lower extremities. She states that she also has been ambulating more slowly since sx onset. Pt had a recent colostomy on 01/27/2017 due to colon cancer. - History Of Current Complaint Chief Complaint: EDGeneral Stated Complaint: VOMITING/DIZZY/LIGHTHEADED Time Seen by Provider: 03/08/17 07:09 Hx Obtained From: Patient Onset/Duration: Still Present, Gradually Timing: Constant Severity Initially: Moderate Severity Currently: Moderate Character: Lightheaded, Weak, Dizzy Aggravating Factor(s): Other - Movement. Alleviating Factor(s): Rest Associated Signs And Symptoms: Positive: Nausea, Vomiting, Other: - Loss of balance. - Allergies/Home Medications Allergies/Adverse Reactions: Allergies Allergy/AdvReac Type Severity Reaction Status Date / Time Penicillins Allergy Intermediate Hives Verified 01/07/17 06:56 clorox Allergy Intermediate Hives Uncoded 01/07/17 06:56 PMH/Surg Hx/FS Hx/Imm Hx Endocrine/Hematology History: Reports: Hx Diabetes - type 2 Cardiovascular History: Reports: Hx Hypertension Denies: Hx Congestive Heart Failure GI History: Reports: Other GI Disorders - benign (?) neoplasm colon Denies: Hx Gastroesophageal Reflux Disease History: Reports: Hx Renal Disease - abnormal gfr Denies: Hx Dialysis Sensory History: Reports: Hx Contacts or Glasses - wears glasses Denies: Hx Hearing Aid Opthamlomology History: Reports: Hx Contacts or Glasses - wears glasses Neurological History: Reports: Hx Transient Ischemic Attacks (TIA) - Surgical History Surgery Procedure, Year, and Place: Gallbladder 1971. Appendix, over 20 yrs ago. right arm 2001. tubal 1990 Hx Anesthesia Reactions: No Infectious Disease History: No Infectious Disease History: Denies: Traveled Outside the [place] in Last 30 Days - Family History Known Family History: Positive: Diabetes Family History: No FHx blood clot - Social History Alcohol Use: None Substance Use Type: Reports: None Smoking Status (MU): Current Some Day Smoker Type: Cigarettes Amount Used/How Often: 1 ppd Review of Systems Positive: Fatigue Positive: Vomiting, Nausea Neurological: Other - Lightheadedness, loss of balance, dizziness, weakness in legs. Slow ambulation. All Other Systems Reviewed And Are Negative: Yes Physical Exam Triage Information Reviewed: Yes Vital Signs On Initial Exam: Initial Vitals Temp Pulse Resp Pulse Ox 97 F 57 16 99 03/08/17 06:36 03/08/17 06:36 03/08/17 06:36 03/08/17 06:36 Vital Signs Reviewed: Yes Appearance: Positive: Well-Appearing, No Pain Distress, Well-Nourished Skin: Positive: Warm, Skin Color Reflects Adequate Perfusion, Dry, Tender Head/Face: Positive: Normal Head/Face Inspection Eyes: Positive: Normal ENT: Positive: Normal ENT inspection Neck: Positive: Supple, Nontender Respiratory/Lung Sounds: Positive: Clear to Auscultation, Breath Sounds Present Cardiovascular: Positive: RRR Abdomen Description: Positive: Nontender, Soft Bowel Sounds: Positive: Present Musculoskeletal: Positive: Normal Neurological: Positive: Normal, Sensory/Motor Intact, Alert, Oriented to Person Place, Time, CN Intact II-III, Reflexes Intact Psychiatric: Positive: Normal, Affect/Mood Appropriate - Addie Coma Scale Coma Scale Total: 15 Diagnostics - Vital Signs Vital Signs Temp Pulse Resp BP Pulse Ox 03/08/17 06:39 97.7 F 58 16 121/60 99 03/08/17 06:36 97 F 57 16 99 - Laboratory Lab Results: Lab Results 03/08/17 03/08/17 Range/Units 06:34 06:34 WBC 11.8 H (3.5-10.8) 10^3/ul RBC 5.03 (4.0-5.4) 10^6/ul Hgb 13.6 (12.0-16.0) g/dl Hct 40 (35-47) % MCV 79 L (80-97) fL MCH 27 (27-31) pg MCHC 34 (31-36) g/dl RDW 16 H (10.5-15) % Plt Count 344 (150-450) 10^3/ul MPV 8 (7.4-10.4) um3 Neut % (Auto) 62.7 (38-83) % Lymph % (Auto) 25.9 (25-47) % Clinton % (Auto) 4.7 (1-9) % Eos % (Auto) 5.9 (0-6) % Baso % (Auto) 0.8 (0-2) % Absolute Neuts (auto) 7.4 (1.5-7.7) 10^3/ul Absolute Lymphs (auto) 3.1 (1.0-4.8) 10^3/ul Absolute Monos (auto) 0.6 (0-0.8) 10^3/ul Absolute Eos (auto) 0.7 H (0-0.6) 10^3/ul Absolute Basos (auto) 0.1 (0-0.2) 10^3/ul Absolute Nucleated RBC 0 10^3/ul Nucleated RBC % 0 Sodium Pending Potassium 3.6 (3.5-5.0) mmol/L Chloride 79 L (101-111) mmol/L Carbon Dioxide 23 (22-32) mmol/L Anion Gap Pending BUN 59 H (6-24) mg/dL Creatinine 2.44 H (0.51-0.95) mg/dL Est GFR ( Amer) 25.6 (>60) Est GFR (Non-Af Amer) 19.9 (>60) BUN/Creatinine Ratio 24.2 H (8-20) Glucose 185 H (70-100) mg/dL Calcium 10.2 (8.6-10.3) mg/dL Total Bilirubin 0.40 (0.2-1.0) mg/dL AST 14 (13-39) U/L ALT 11 (7-52) U/L Alkaline Phosphatase 87 (34-104) U/L Total Protein 7.3 (6.4-8.9) g/dL Albumin 4.1 (3.2-5.2) g/dL Globulin 3.2 (2-4) g/dL Albumin/Globulin Ratio 1.3 (1-3) Result Diagrams: 03/08/17 06:34 03/08/17 06:34 Lab Statement: Any lab studies that have been ordered have been reviewed, and results considered in the medical decision making process. Re-Evaluation - Re-Evaluation First Eval Re-Evaluation Time: 08:00 Comment: Informed pt that Dr. Calabrese will be coming down. Dizzy Course/Dx - Course Course Of Treatment: Ms. Marion's C/o were pretty vague consisting primarily of mild nausea and feeling a bit off balance. Her exam was pretty unremarkable although she looked pretty washed out. Her sodium returned quite low at 114 and she was started on NS and will be admitted. - Diagnoses Provider Diagnoses: Hyponatremia - Provider Notifications Discussed Care Of Patient With: Dr. Calabrese Time Discussed With Above Provider: 07:47 Instructed by Provider To: Other - Consult Dr. Calabrese. Dr. Calabrese (Oncology) @ 0754. Discussed case. Will see pt in ED and admit. Admit/Transition Orders Completed By ED Provider: Yes - Critical Care Time Critical Care Time: 30-74 min Discharge - Discharge Plan Condition: Stable Disposition: ADMITTED TO [facility] Referrals: Cruz Ayers DO [Primary Care Provider] - The documentation as recorded by the Jackson severino Salem accurately reflects the service I personally performed and the decisions made by me, Isidro Thompson MD.
[2017-03-08 09:27] LABS: Urine Bacteria Absent (Absent); Urine Bilirubin Negative (Negative); Urine Glucose Negative (Negative); Urine Nitrite Negative (Negative)
--- NOTE | 2017-03-08 10:12 | RAD ---
INDICATION: Lung mass. COMPARISON: Comparison is made with a prior CT of the chest from October 02, 2016 and a prior PET/CT study from October 31, 2016. TECHNIQUE: A CT scan of the chest was performed without intravenous contrast. Contiguous axial sections were obtained from the lung apices through the lung bases. Images were reconstructed in the coronal and sagittal planes. FINDINGS: There is a mass present in the superior segment of the right lower lobe measuring 2.0 x 1.5 cm in size which is unchanged from the prior studies. This has irregular slightly spiculated margins and is suspicious for malignant process. There is a second nodular density in the right lower lobe measuring 0.5 cm in size which is also unchanged. The larger mass was hypermetabolic on the prior PET/CT study. The lungs are otherwise clear. No pleural effusion is seen. No significant enlarged mediastinal or hilar lymph nodes are seen. The heart is within normal limits in size. No pericardial effusion is present. The thoracic aorta is normal in caliber. There is mild calcific plaque present. Images of the upper abdomen demonstrate postcholecystectomy changes. No significant focal osseous abnormality is seen. IMPRESSION: 1. THERE IS A MASS IN THE SUPERIOR SEGMENT OF THE RIGHT LOWER LOBE WHICH IS UNCHANGED IN SIZE FROM THE PRIOR EXAMS. THIS HAS IRREGULAR MARGINS AND WAS HYPERMETABOLIC ON THE PRIOR PET/CT STUDY MOST CONSISTENT WITH A MALIGNANT LESION. 2. THERE IS A SECOND SMALL 0.5 CM NODULE IN THE RIGHT LOWER LOBE WHICH IS ALSO UNCHANGED IN SIZE.
[2017-03-08] MEDS: NS 0.9% 1000 ML* 1,000 ML IV SCH ×2 (12:15→21:37)
[2017-03-08] MEDS: Heparin VIAL(*) 5000 UNITS/ML VIAL (FIVE THOUSAND) SUBCUT SCH ×2 (15:19→20:52)
--- NOTE | 2017-03-08 20:44 | HP ---
HISTORY AND PHYSICAL: DATE OF ADMISSION: INDICATION: A 66-year-old female who was recently diagnosed with T2, N0 colon cancer as well as a p ulmonary mass. HISTORY OF PRESENT ILLNESS: Ms. Franklin is a 66-year-old female followed through Oncology after rece nt diagnosis of colon cancer. She presented on 09/13/[address] scan was done for peripheral vascu lar disease, but was found to have a chest nodule. Ultimately shown to be a 2.1 cm lesion in the ri [facility] lower lobe. Staging PET scan showed mass in the sigmoid colon, which was diagnosed as well- dif ferentiated adenocarcinoma. She had nondiagnostic fine-needle aspiration of the lung mass. The guilherme camilo was done on 01/07/17 and revealed a T2, N0 colon cancer with 0 of 19 nodes positive, well diffe rentiated. Etiology of the lung lesion is still unknown, likely primary lung cancer. Initially, she tolerated surgery fairly well. However, she was admitted postoperatively for dehydra tion approximately 4 days after her initial discharge from [facility]. She was seen on and had been doing okay, generally not feeling well. She still is dealing with some episode s of dehydration and had had mixed output from her colostomy with some solid, running stools. At th at time, she was found to have a sodium of 125 with a creatinine of 2, near her post surgical baseli ne. Given instructions for hydration. Over the past week, she has been feeling more poorly. She h as been very fatigued. She has had increased runny output from her ileostomy. She has been drinkin g approximately 3 bottles of water a day, drinking soda. Not eating very much at all. Tries to savi e herself eat breakfast plus some dinner, but volumes are very low. This morning, she felt weak and shaky and called an ambulance. On presentation to the emergency room, she was afebrile, BP 143/65 and pulse in the 60s. Blood work showed sodium of 114, potassium 3.6, chloride 79, anion gap 12, BU N 59, creatinine 2.44, and glucose of 185. Normal blood counts. She has not had any fevers or chil ls at home, no shortness of breath, she has had decreased urine output. She has had some dizziness, no headaches, no mental status changes. PAST MEDICAL HISTORY: 1. Peripheral vascular disease. 2. Diabetes type 2, on insulin. 3. Dysfunctional uterine bleeding. 4. GERD. 5. Hypertension. 6. Colon cancer. History as described in the HPI. 7. Lung mass, evaluation pending. PAST SURGICAL HISTORY: 1. Right elbow surgery. 2. Cholecystectomy. 3. Appendectomy. 4. Tubal ligation. 5. Sigmoid colon resection with ileostomy on 01/07/17. MEDICATIONS: 1. She had been on atenolol-chlorthalidone but that was held on January 23 as was her lisinopril. 2. Levemir 30 units daily. 3. Trental 400 mg controlled release daily. ALLERGIES: PENICILLIN. FAMILY HISTORY: No history of colon cancer. Lung cancer in the family with heavy smoking history. SOCIAL HISTORY: is with her in the emergency room, she has strong family support. She does not drink. Still smokes over 1 pack per day. REVIEW OF SYSTEMS: As noted in the HPI, 14-point review of systems otherwise negative. PHYSICAL EXAMINATION GENERAL: She is in no distress. VITAL SIGNS: Temperature 97.7, pulse 59, BP 121/60, respirations 14. HEENT: Pale. Mucosa is moist and no lesions. No cervical or supraclavicular lymphadenopathy. LUNGS: Clear to auscultation. HEART: Regular rate and rhythm. S1, S2. ABDOMEN: She has loose stool out of her ileostomy, watery. Nontender, nondistended, no hepatosplen omegaly. EXTREMITIES: No clubbing, cyanosis, or edema. NEURO: Alert and oriented x3, feeling weak and did not walk her. Grossly nonfocal. LABORATORY DATA: As noted above. ASSESSMENT AND PLAN: A 66-year-old female with recently resected colon cancer and an ileostomy as w ell as pulmonary mass. She presents with hyponatremia. Likely cause is dehydration from poor appet ite after surgery, high ileostomy output, and replacement of free water. Contributed differential d iagnosis also includes contribution from chronic renal insufficiency, prior use of a chlorothiazide diuretic, she could have an element of SIADH from her pulmonary process. 1. She will be admitted with normal saline with goal of replace of elevating sodium to approximatel y 25 over the next 24 hours. 2. We will follow colostomy output. 3. Consider Imodium if she continues to have watery stool. 4. Check urine for specific gravity. If she does not respond appropriately to normal saline and hy dration, we will consider evaluation for SIADH. 5. We will repeat her chest CT for any changes in her 2 cm pulmonary mass. 6. Once improved, determine if we need any appetite stimulants to prevent recurrent events. 7. We will continue her Levemir and have her on a low dose insulin sliding scale. 8. Heparin for DVT prophylaxis. [id number]/[facility] #: [id number]
[2017-03-08] MEDS: Zolpidem TAB* 5 MG PO SCH (20:52)
[2017-03-08 22:27] LABS: BUN/Creatinine Ratio 26.1 (8-20); Calcium 9.3 mg/dL (8.6-10.3); EGFR African American 32.4 (>60); EGFR Non-African American 25.2 (>60); Potassium 3.5 mmol/L (3.5-5.0)
[2017-03-08] MEDS ORDERED: CMCS: Pantoprazole TAB (NF) 40 MG TAB PO ONE (23:00)
[2017-03-09] MEDS: NS 0.9% 1000 ML* 1,000 ML IV SCH ×3 (02:52→22:06)
[2017-03-09] MEDS: Heparin VIAL(*) 5000 UNITS/ML VIAL (FIVE THOUSAND) SUBCUT SCH ×3 (05:47→21:15)
--- NOTE | 2017-03-09 09:23 | PN ---
Progress Note - Progress Note SOAP: Subjective: []Feeling much better. Hungry and eating today. Urinated a few times, some burning with urination this am. Up and walking around. Acetaminophen (Tylenol Tab*) 650 mg PO Q4H PRN PRN Reason: FEVER/PAIN Heparin Sodium (Porcine) (Heparin Vial(*)) 5,000 units SUBCUT Q8HR [facility] Last Admin: 03/09/17 05:47 Dose: Not Given Sodium Chloride (Ns 0.9% 1000 Ml*) 1,000 mls @ 150 mls/hr IV PER RATE [facility] Last Admin: 03/09/17 02:52 Dose: 150 mls/hr Insulin Glargine (Lantus(*)) 30 units SUBCUT DAILY [facility] Ondansetron HCl (Zofran Inj*) 4 mg IV Q4H PRN PRN Reason: NAUSEA/VOMITING Oxycodone/Acetaminophen (Percocet 5/325 Tab*) 1 tab PO Q4H PRN PRN Reason: Pain Pantoprazole Sodium (Protonix Tab (Nf)) 40 mg PO DAILY [facility] Pentoxifylline (Trental Cr Tab*) 400 mg PO QAM [facility] Zolpidem Tartrate (Ambien Tab*) 5 mg PO BEDTIME [facility] Last Admin: 03/08/17 20:52 Dose: Not Given Objective: [] Vital Signs Temp Pulse Resp BP Pulse Ox 97.7 F 71 20 127/62 100 03/09/17 07:26 03/09/17 07:26 03/09/17 07:26 03/09/17 07:26 03/09/17 07:26 HEENT - no lesions, no thrush, no JVD CTA RRR S1S2 Still liquid stool in bag No edema Assessment: []Hyponatremia second to volume deplesion and free water intake, possible contribution of SIADH from underlying lung disease and/or poor sodium retention from CRI. Notable that she did not have concentrated urine on presentation. Plan: []1. Continue IVF and follow Na and Cr tomorrow. 2. If improved can D/C home and will add salt tablets at home. 3. Follow po intake 4. If discharged over weekend will need follow up next week in clinic.
[2017-03-09] MEDS: Insulin GLARGINE(*) 1 UNITS UNIT SUBCUT SCH (09:59)
[2017-03-09] MEDS: Pentoxifylline CR TAB* 400 MG PO SCH (10:00)
[2017-03-09] MEDS: CMC:Pantoprazole TAB (NF) 40 MG TAB PO SCH (10:01)
[2017-03-09] MEDS: Sodium Chloride TAB* 1 GM PO SCH (21:13)
[2017-03-09] MEDS: Zolpidem TAB* 5 MG PO SCH (21:15)
[2017-03-10 05:38] LABS: BUN/Creatinine Ratio 19.4 (8-20); Calcium 8.6 mg/dL (8.6-10.3); EGFR African American 43.3 (>60); EGFR Non-African American 33.7 (>60); Magnesium 1.9 mg/dL (1.9-2.7); Potassium 3.3 mmol/L (3.5-5.0)
[2017-03-10] MEDS: Heparin VIAL(*) 5000 UNITS/ML VIAL (FIVE THOUSAND) SUBCUT SCH ×2 (05:45→12:59)
[2017-03-10] MEDS: NS 0.9% 1000 ML* 1,000 ML IV SCH (05:46)
[2017-03-10] MEDS: Insulin GLARGINE(*) 1 UNITS UNIT SUBCUT SCH (08:05)
[2017-03-10] MEDS: Pentoxifylline CR TAB* 400 MG PO SCH (08:06)
[2017-03-10] MEDS: CMC:Pantoprazole TAB (NF) 40 MG TAB PO SCH (08:07)
[2017-03-10] MEDS: Sodium Chloride TAB* 1 GM PO SCH (08:56)
[2017-03-10 13:41] VITALS: BP 148/72
--- NOTE | 2017-03-10 14:02 | PN ---
Subjective Date of Service: 03/10/17 Interval History: Ms. Franklin states that she is feeling very well today and is eager for discharge. She denies complaint including chest pain, SOB, nausea, or abdominal pain. She has a good appetite and is tolerating oral intake well. Objective Active Medications: Acetaminophen (Tylenol Tab*) 650 mg PO Q4H PRN Heparin Sodium (Porcine) (Heparin Vial(*)) 5,000 units SUBCUT Q8HR [facility] Sodium Chloride (Ns 0.9% 1000 Ml*) 1,000 mls @ 150 mls/hr IV PER RATE [facility] Insulin Glargine (Lantus(*)) 30 units SUBCUT DAILY [facility] Ondansetron HCl (Zofran Inj*) 4 mg IV Q4H PRN Oxycodone/Acetaminophen (Percocet 5/325 Tab*) 1 tab PO Q4H PRN Pantoprazole Sodium (Protonix Tab (Nf)) 40 mg PO DAILY [facility] Pentoxifylline (Trental Cr Tab*) 400 mg PO QAM [facility] Sodium Chloride (Sodium Chloride Tab*) 1 gm PO BID [facility] Zolpidem Tartrate (Ambien Tab*) 5 mg PO BEDTIME [facility] Vital Signs 03/09/17 03/09/17 03/09/17 15:30 19:48 20:00 Temperature 97.7 F 97.5 F Pulse Rate 65 65 Respiratory 16 16 18 Rate Blood Pressure 117/54 135/56 (mmHg) O2 Sat by Pulse 100 100 Oximetry 03/09/17 03/10/17 03/10/17 23:52 03:46 07:58 Temperature 98.0 F 97.8 F 98.1 F Pulse Rate 70 77 87 Respiratory 16 16 16 Rate Blood Pressure 144/63 144/68 152/72 (mmHg) O2 Sat by Pulse 99 99 97 Oximetry 03/10/17 03/10/17 08:00 11:28 Temperature 97.7 F Pulse Rate 79 Respiratory 18 16 Rate Blood Pressure 148/72 (mmHg) O2 Sat by Pulse 100 Oximetry Oxygen Devices in Use Now: None Appearance: Female sitting up in bed in NAD Eyes: No Scleral Icterus Ears/Nose/Mouth/Throat: Mucous Membranes Moist Neck: NL Appearance and Movements; NL JVP Respiratory: Symmetrical Chest Expansion and Respiratory Effort, Clear to Auscultation Cardiovascular: NL Sounds; No Murmurs; No JVD, No Edema Abdominal: NL Sounds; No Tenderness; No Distention, - - Ileostomy stoma pink and beefy Lymphatic: No Cervical Adenopathy Extremities: No Edema Skin: No Rash or Ulcers Neurological: Alert and Oriented x 3, NL Muscle Strength and Tone Nutrition: Taking PO's Result Diagrams: 03/08/17 06:34 03/10/17 05:05 Additional Lab and Data: Lab Results 03/08/17 03/08/17 Range/Units 06:34 06:34 WBC 11.8 H (3.5-10.8) 10^3/ul RBC 5.03 (4.0-5.4) 10^6/ul Hgb 13.6 (12.0-16.0) g/dl Hct 40 (35-47) % MCV 79 L (80-97) fL MCH 27 (27-31) pg MCHC 34 (31-36) g/dl RDW 16 H (10.5-15) % Plt Count 344 (150-450) 10^3/ul MPV 8 (7.4-10.4) um3 Neut % (Auto) 62.7 (38-83) % Lymph % (Auto) 25.9 (25-47) % [place] % (Auto) 4.7 (1-9) % Eos % (Auto) 5.9 (0-6) % Baso % (Auto) 0.8 (0-2) % Absolute Neuts (auto) 7.4 (1.5-7.7) 10^3/ul Absolute Lymphs (auto) 3.1 (1.0-4.8) 10^3/ul Absolute Monos (auto) 0.6 (0-0.8) 10^3/ul Absolute Eos (auto) 0.7 H (0-0.6) 10^3/ul Absolute Basos (auto) 0.1 (0-0.2) 10^3/ul Absolute Nucleated RBC 0 10^3/ul Nucleated RBC % 0 Sodium Pending Potassium 3.6 (3.5-5.0) mmol/L Chloride 79 L (101-111) mmol/L Carbon Dioxide 23 (22-32) mmol/L Anion Gap Pending BUN 59 H (6-24) mg/dL Creatinine 2.44 H (0.51-0.95) mg/dL Est GFR ( Amer) 25.6 (>60) Est GFR (Non-Af Amer) 19.9 (>60) BUN/Creatinine Ratio 24.2 H (8-20) Glucose 185 H (70-100) mg/dL Calcium 10.2 (8.6-10.3) mg/dL Total Bilirubin 0.40 (0.2-1.0) mg/dL AST 14 (13-39) U/L ALT 11 (7-52) U/L Alkaline Phosphatase 87 (34-104) U/L Total Protein 7.3 (6.4-8.9) g/dL Albumin 4.1 (3.2-5.2) g/dL Globulin 3.2 (2-4) g/dL Albumin/Globulin Ratio 1.3 (1-3) Microbiology and Other Data: Microbiology 03/08/17 17:00 Urine Culture - Final Urine No Growth (<1,000 CFU/mL) 03/08/17 09:09 Urine Culture - Final Urine No Growth (<1,000 CFU/mL) Assess/Plan/Problems-Billing Assessment: Ms. Franklin is a 66 yo female with a PMH of colon cancer s/p resection with ileostomy and presumed lung cancer who was admitted on 03/08/17 with hyponatremia secondary to dehydration with poor oral intake and high ostomy output. - Patient Problems (1) Hyponatremia Comment: Resolved with hydration. Encouraged fluid intake with electrolyte supplementation such as a low carb gatorade. Patient to follow up with Dr. Calabrese. (2) CKD stage 3 secondary to diabetes Comment: Stable. (3) Colorectal cancer Comment: With presumed lung cancer as well. Management per oncology. (4) HTN (hypertension) Comment: BP well controlled. Now off all antihypertensives. (5) Type 2 diabetes mellitus Comment: Well controlled on current regimen, continue lantus. (6) DVT prophylaxis Comment: - SQ heparin. (7) Full code status Status and Disposition: Discharge to home.
[2017-03-10 14:58] LABS: Urine Creatinine/24HR 517.25 mg/24Hr (600-1800)
--- NOTE | 2017-03-11 05:41 | DS ---
DISCHARGE SUMMARY: DATE OF ADMISSION: 03/08/17 DATE OF DISCHARGE: 03/10/17 PRIMARY CARE PHYSICIAN: Patrice Calabrese MD ATTENDING PHYSICIAN: DO Karson Tariq(Dictation provided by Genesis Zhang NP) PRIMARY DIAGNOSIS: Dehydration with hyponatremia. SECONDARY DIAGNOSES: 1. Colon cancer, status post ileostomy. 2. Lung mass, evaluation pending. 3. Peripheral vascular disease. 4. Type 2 diabetes, insulin dependent. 5. Dysfunctional uterine bleeding. 6. Gastroesophageal reflux disease. 7. Hypertension. PAST SURGICAL HISTORY: 1. Right elbow surgery. 2. Cholecystectomy. 3. Appendectomy. 4. Tubal ligation. 5. Sigmoid colon resection with ileostomy on 01/07/17. MEDICATIONS: 1. Levemir 30 units p.o. daily. 2. Trental 400 mg controlled release daily. HOSPITAL COURSE: Ms. Franklin is a 66-year-old female with recent diagnoses of colon cancer, status post resection with ileostomy on 01/07/17 as well as concern for a lung mass with likely lung cancer who is followed by Dr. Calabrese. The patient was admitted to the hospital on 03/08/17 with concern for dehydration and hyponatremia. The patient had reported poor oral intake and increased output from her ostomy. She also reported a large amount of free water intake. In the emergency room, she had a sodium, which was 114. Ms. Franklin was admitted to the hospital and provided with IV hydration. By that evening, her sodium had increased to 122 and today, the day of discharge, it is 135. The patient did have a chest CT during this hospitalization to reevaluate her lung mass. It was read as follows: "There is a mass in the superior segment of the right lower lobe, which is unchanged in size from the prior exam. This has regular margins and was hypermetabolic on the prior PET CTs that is most consistent with malignant lesion. There is a second small 0.5 cm nodule on the right lower lobe, which is also unchanged in size." Ms. Franklin was feeling quite well this morning. She has no complaints. She has good appetite and is tolerating oral intake well. She understands that she should make an effort to include drinks with electrolyte supplementation such as a low- calorie Gatorade type drink to ensure her electrolyte balance. Her ostomy output is not excessive, per her report. Ms. Franklin is medically stable for discharge home to follow up with Dr. Calabrese in the next 4 to 7 days. DISPOSITION: To home. DIET: As tolerated with electrolyte supplements and her beverages. FOLLOWUP: Please follow up with Dr. Calabrese in the next 4 to 7 days. ACTIVITY: As tolerated. TIME SPENT: Approximately 60 minutes was spent in the discharge of this patient , more than half of the time was spent with the patient at the bedside reviewing the events leading up to this hospitalization, performing the physical examination, and reviewing my plan of care. GENESIS ZHANG NP CC: Dr. Calabrese* [id number]/[facility] #: [id number] MTDAric
== END 2017-03-10 16:00 | disposition home or self-care (01) | DRG 422 ==
LOC: ED 06:24 → MED 09:04
PROVIDERS: ADMIT Internal Medicine Hematology & Oncology; ATTEND Internal Medicine Hematology & Oncology
DX: E87.1 Hypo-osmolality and hyponatremia (principal); E86.0 Dehydration; C18.9 Malignant neoplasm of colon, unspecified; E11.22 Type 2 diabetes mellitus with diabetic chronic kidney disease; E11.51 Type 2 diabetes mellitus with diabetic peripheral angiopathy without gangrene; I12.9 Hypertensive chronic kidney disease with stage 1 through stage 4 chronic kidney disease, or unspecified chronic kidney disease; R91.8 Other nonspecific abnormal finding of lung field; N93.8 Other specified abnormal uterine and vaginal bleeding; K21.9 Gastro-esophageal reflux disease without esophagitis; F17.210 Nicotine dependence, cigarettes, uncomplicated; N18.3 Chronic kidney disease, stage 3 (moderate); Z93.2 Ileostomy status; Z79.899 Other long term (current) drug therapy; Z79.4 Long term (current) use of insulin; Z88.0 Allergy status to penicillin
CPT/HCPCS: 36415; 71250; 80048; 80053; 81003; 81015; 82570; 83735; 84156; 85025; 87086; 99223; A9270-GY; J1644

== ENCOUNTER 2017-03-21 01:37 | Emergency (ER) | payer BC ==
[2017-03-21] MEDS ORDERED: Ondansetron INJ* 2 MG/ML VIAL IV ONE (01:52)
[2017-03-21] MEDS ORDERED: NS 0.9% 1000 ML* 1,000 ML IV ONE (01:52)
[2017-03-21 03:35] LABS: Hematocrit 36 % (35-47); Hemoglobin 11.6 g/dl (12.0-16.0); Mean Corpuscular HGB Conc 32 g/dl (31-36); Mean Corpuscular Hemoglobin 27 pg (27-31); Mean Corpuscular Volume 83 fL (80-97); Mean Platelet Volume 8 um3 (7.4-10.4); Red Blood Count 4.37 10^6/ul (4.0-5.4); Red Cell Distribution Width 17 % (10.5-15); White Blood Count 11.3 10^3/ul (3.5-10.8)
[2017-03-21 03:46] LABS: Urine Bacteria Absent (Absent); Urine Bilirubin Negative (Negative); Urine Glucose 1+(50 mg/dL) (Negative); Urine Nitrite Negative (Negative)
[2017-03-21 03:49] LABS: Albumin 3.2 g/dL (3.2-5.2); BUN/Creatinine Ratio 32.1 (8-20); C Reactive Protein 5.79 mg/L (< 5.00); Calcium 8.8 mg/dL (8.6-10.3); EGFR African American 39.3 (>60); EGFR Non-African American 30.6 (>60); Globulin 2.4 g/dL (2-4); Magnesium 1.6 mg/dL (1.9-2.7); Total Bilirubin 0.5 mg/dL (0.2-1.0); Total Protein 5.6 g/dL (6.4-8.9)
[2017-03-21] MEDS ORDERED: Potassium Chloride LIQUID* 20 MEQ PACKET PO ONE (03:52)
--- NOTE | 2017-03-21 04:32 | ED ---
Sergio Pierce Claudia, scribed for Bob Etsrada MD on 03/21/17 at 0154 . Complex/Multi-Sys Presentation - HPI Summary HPI Summary: 67 year old female presents to the ED with multi-Sx. Pt states that around 1230am on 03/21/17 she states she was sitting at her kitchen table and she had 2 bouts of emesis followed by some chills and "shaking". She denies any other associated Sx including urinary Sx and fever. Pt also denies any aggravating or alleviating factors. - History Of Current Complaint Time Seen by Provider: 03/21/17 01:48 Hx Obtained From: Patient Onset/Duration: Sudden Onset, Lasting Hours, Still Present Timing: Intermittent, Lasting: Associated Signs And Symptoms: Positive: Nausea, Vomiting. Negative: Dysuria, Fever - Allergies/Home Medications Allergies/Adverse Reactions: Allergies Allergy/AdvReac Type Severity Reaction Status Date / Time Penicillins Allergy Intermediate Hives Verified 03/21/17 01:58 Sodium Hypochlorite Allergy Intermediate Hives Verified 03/21/17 01:58 clorox Allergy Intermediate Hives Uncoded 03/21/17 01:58 PMH/Surg Hx/FS Hx/Imm Hx Previously Healthy: Yes Endocrine/Hematology History: Reports: Hx Diabetes - type 2 Cardiovascular History: Reports: Hx Hypertension Denies: Hx Congestive Heart Failure GI History: Reports: Other GI Disorders - benign (?) neoplasm colon Denies: Hx Gastroesophageal Reflux Disease History: Reports: Hx Renal Disease - abnormal gfr Denies: Hx Dialysis Sensory History: Reports: Hx Contacts or Glasses Denies: Hx Hearing Aid Opthamlomology History: Reports: Hx Contacts or Glasses Neurological History: Reports: Hx Transient Ischemic Attacks (TIA) - Surgical History Surgery Procedure, Year, and Place: Gallbladder 1971. Appendix, over 20 yrs ago. right arm 2001. tubal 1990 Hx Anesthesia Reactions: No Infectious Disease History: Denies: Traveled Outside the [place] in Last 30 Days - Family History Known Family History: Positive: Diabetes Family History: No FHx blood clot - Social History Lives: With Family Alcohol Use: None Substance Use Type: Reports: None Smoking Status (MU): Current Some Day Smoker Type: Cigarettes Amount Used/How Often: 1 ppd Review of Systems Positive: Chills. Negative: Fever Eyes: Negative ENT: Negative Cardiovascular: Negative Respiratory: Negative Positive: Vomiting, Nausea Genitourinary: Negative Musculoskeletal: Negative Skin: Negative Neurological: Negative Psychological: Normal All Other Systems Reviewed And Are Negative: Yes Physical Exam Triage Information Reviewed: Yes Vital Signs On Initial Exam: Initial Vitals Temp Pulse Resp BP Pulse Ox 97.3 F 74 16 152/78 99 03/21/17 01:40 03/21/17 01:40 03/21/17 01:40 03/21/17 01:40 03/21/17 01:40 Vital Signs Reviewed: Yes Appearance: Positive: Well-Appearing, No Pain Distress Skin: Positive: Warm Head/Face: Positive: Normal Head/Face Inspection Eyes: Positive: MARTHA ENT: Positive: Hearing grossly normal Neck: Positive: Supple Respiratory/Lung Sounds: Positive: Clear to Auscultation, Breath Sounds Present Cardiovascular: Positive: RRR Abdomen Description: Positive: Nontender, No Organomegaly, Soft Bowel Sounds: Positive: Present Musculoskeletal: Positive: Strength/ROM Intact Neurological: Positive: Alert, Oriented to Person Place, Time Psychiatric: Positive: Affect/Mood Appropriate Diagnostics - Vital Signs Vital Signs Temp Pulse Resp BP Pulse Ox 03/21/17 04:00 82 103/62 98 03/21/17 03:30 80 123/69 97 03/21/17 03:22 138/90 03/21/17 03:20 97.3 F 03/21/17 03:12 80 98 03/21/17 03:00 78 138/68 99 03/21/17 02:30 77 134/66 96 03/21/17 02:01 75 98 03/21/17 02:00 136/69 03/21/17 01:40 97.3 F 74 16 152/78 99 - Laboratory Lab Results: Lab Results 03/21/17 03/21/17 03/21/17 Range/Units 03:05 03:05 03:25 WBC 11.3 H (3.5-10.8) 10^3/ul RBC 4.37 (4.0-5.4) 10^6/ul Hgb 11.6 L (12.0-16.0) g/dl Hct 36 (35-47) % MCV 83 (80-97) fL MCH 27 (27-31) pg MCHC 32 (31-36) g/dl RDW 17 H (10.5-15) % Plt Count 300 (150-450) 10^3/ul MPV 8 (7.4-10.4) um3 Neut % (Auto) 74.1 (38-83) % Lymph % (Auto) 17.9 L (25-47) % [place] % (Auto) 3.6 (1-9) % Eos % (Auto) 3.3 (0-6) % Baso % (Auto) 1.1 (0-2) % Absolute Neuts (auto) 8.3 H (1.5-7.7) 10^3/ul Absolute Lymphs (auto) 2.0 (1.0-4.8) 10^3/ul Absolute Monos (auto) 0.4 (0-0.8) 10^3/ul Absolute Eos (auto) 0.4 (0-0.6) 10^3/ul Absolute Basos (auto) 0.1 (0-0.2) 10^3/ul Absolute Nucleated RBC 0.01 10^3/ul Nucleated RBC % 0.1 Sodium 137 (133-145) mmol/L Potassium 3.0 L (3.5-5.0) mmol/L Chloride 106 (101-111) mmol/L Carbon Dioxide 22 (22-32) mmol/L Anion Gap 9 (2-11) mmol/L BUN 54 H (6-24) mg/dL Creatinine 1.68 H (0.51-0.95) mg/dL Est GFR ( Amer) 39.3 (>60) Est GFR (Non-Af Amer) 30.6 (>60) BUN/Creatinine Ratio 32.1 H (8-20) Glucose 260 H (70-100) mg/dL Calcium 8.8 (8.6-10.3) mg/dL Magnesium 1.6 L (1.9-2.7) mg/dL Total Bilirubin 0.50 (0.2-1.0) mg/dL AST 12 L (13-39) U/L ALT 18 (7-52) U/L Alkaline Phosphatase 77 (34-104) U/L C-Reactive Protein 5.79 H (< 5.00) mg/L Total Protein 5.6 L (6.4-8.9) g/dL Albumin 3.2 (3.2-5.2) g/dL Globulin 2.4 (2-4) g/dL Albumin/Globulin Ratio 1.3 (1-3) Lipase 69 (11.0-82.0) U/L Urine Color Yellow Urine Appearance Clear Urine pH 5.0 (5-9) Ur Specific [place] 1.014 (1.010-1.030) Urine Protein Negative (Negative) Urine Ketones Negative (Negative) Urine Blood Negative (Negative) Urine Nitrate Negative (Negative) Urine Bilirubin Negative (Negative) Urine Urobilinogen Negative (Negative) Ur Leukocyte Esterase 2+ H (Negative) Urine WBC (Auto) 2+(11-20/hpf) H (Absent) Urine RBC (Auto) 1+(3-5/hpf) H (Absent) Ur Squamous Epith Cells Present H (Absent) Urine Bacteria Absent (Absent) Urine Glucose 1+(50 mg/dl) H (Negative) Result Diagrams: 03/21/17 03:05 03/21/17 03:05 Lab Statement: Any lab studies that have been ordered have been reviewed, and results considered in the medical decision making process. Re-Evaluation - Re-Evaluation First Eval Change: Improved Complex Multi-Symp Course/Dx Assessment/Plan: MDM: AFTER ZOFRAN, IV FLUIDS AND OBSERVATION. THE PT IS IMPROVED AND IS READY TO B D/C HOME WITH FOLLOW-UP WITH PCP THIS WEEK. - Diagnoses Provider Diagnoses: Vomiting Discharge - Discharge Plan Condition: Stable Disposition: HOME Patient Education Materials: Acute Nausea and Vomiting (ED) Referrals: Cruz Ayers DO [Primary Care Provider] - 2 Days The documentation as recorded by the Sergio severino Claudia accurately reflects the service I personally performed and the decisions made by Sean velez David, MD.
[2017-03-21 06:43] VITALS: BP 131/75
== END 2017-03-21 04:55 | disposition home or self-care (01) ==
LOC: ED 01:37
DX: R11.2 Nausea with vomiting, unspecified (principal); Z72.0 Tobacco use
CPT/HCPCS: 36415; 80053; 81003; 81015; 83690; 83735; 85025; 86140; 87086; 96374; 99283; A9270-GY; J2405

== ENCOUNTER 2017-03-25 06:25 | Inpatient (IN) | payer BC ==
[~2017-03-25 06:25] MED LIST changes: +Buffered Lidocaine 0.9% SYRIN* 5 ML/SYR SYRINGE INTRADERM ONE; -Famotidine IV* 10 MG/ML 2 ML (20 mg) ONE; -Heparin VIAL(*) 5000 UNITS/ML VIAL (FIVE THOUSAND) ONE; -Metoclopramide TAB* 10 MG ONE
[2017-03-25] MEDS ORDERED: Levofloxacin 750 MG IVPREMIX(* 750 MG/150 ML BAG ONE (06:49)
[2017-03-25] MEDS ORDERED: Heparin VIAL(*) 5000 UNITS/ML VIAL (FIVE THOUSAND) ONE (06:49)
[2017-03-25] MEDS ORDERED: Buffered Lidocaine 0.9% SYRIN* 5 ML/SYR SYRINGE ONE ×2 (06:49→07:25)
[2017-03-25] MEDS ORDERED: Insulin REGULAR(*) 1 UNITS UNIT ONE ×2 (07:01→10:25)
[2017-03-25] MEDS ORDERED: Atenolol TAB* 25 MG ONE (07:18)
[2017-03-25] MEDS ORDERED: Propofol* 10 MG/ML 20 ML BTL IV PUSH ONE (07:51)
[2017-03-25] MEDS ORDERED: Lidocaine 2% PF * 5 ML VIAL ONE (07:51)
[2017-03-25] MEDS ORDERED: fentaNYL* 50 MCG/ML 2 ML VIAL (100 MCG VIAL) ONE ×2 (07:51→10:12)
[2017-03-25] MEDS ORDERED: Atracurium* 10 MG/ML 10 ML VIAL ONE (07:52)
[2017-03-25] MEDS ORDERED: Phenylephrine IV* 40 MCG/ML 10 ML SYRINGE ONE (08:12)
[2017-03-25] MEDS ORDERED: DiMENhydriNATE IV* 50 MG/ML VIAL IV PUSH PRN (08:58)
[2017-03-25] MEDS ORDERED: Ketorolac INJ* 30 MG/ML 1 ML VIAL IV PRN (08:58)
[2017-03-25] MEDS ORDERED: Ondansetron INJ* 2 MG/ML VIAL IV PRN (08:58)
[2017-03-25] MEDS ORDERED: Bupivacaine 0.25% EPI 200,000* 30 ML SDV ONE (09:26)
[2017-03-25] MEDS ORDERED: Bupivacaine 0.5% W/EPI SDV* 30 ML VIAL ONE (09:26)
[2017-03-25] MEDS ORDERED: Bupivacaine 0.5% SDV PF* 30 ML VIAL ONE (09:27)
[2017-03-25] MEDS ORDERED: Acetaminophen TAB* 325 MG PO PRN (09:59)
[2017-03-25] MEDS ORDERED: Docusate CAP* 100 MG PO PRN (09:59)
[2017-03-25] MEDS ORDERED: Dextrose 50% Syringe 50 ML* 25 GM/50 ML SYRINGE IV PUSH PRN (10:10)
[2017-03-25] MEDS ORDERED: HYDROmorphone* 1 MG/ML 1 ML SYR ONE (10:12)
[2017-03-25] MEDS: fentaNYL* 50 MCG/ML 2 ML VIAL (100 MCG VIAL) IV PRN ×2 (10:13→10:32)
[2017-03-25] MEDS: HYDROmorphone* 1 MG/ML 1 ML SYR IV PRN ×9 (10:15→23:34)
--- NOTE | 2017-03-25 10:25 | PN ---
Progress Note - Progress Note Note: Brief operative note: Pre-op: Hx colon cancer, Ileostomy Post-op: Same Procedure: Ileostomy reversal Surgeon: Dr. Crowell Way Inspector: Zheng Lisa Anesthesia: GETA EBL: <100 cc Fluids: LR 2000 cc Drains: None Catheter: Lim to gravity Specimen: Portion of terminal ileum Findings: See dictated op note
[2017-03-25] MEDS ORDERED: Labetalol IV* 5 MG/ML 20 ML VIAL ONE (11:23)
[2017-03-25] MEDS: Insulin LISPRO* 1 UNITS UNIT SUBCUT SCH ×2 (12:46→17:56)
[2017-03-25] MEDS: NS 0.9% 1000 ML* 1,000 ML IV SCH ×2 (12:52→23:26)
[2017-03-25] MEDS: Heparin VIAL(*) 5000 UNITS/ML VIAL (FIVE THOUSAND) SUBCUT SCH ×2 (14:09→21:54)
[2017-03-25] MEDS: Ondansetron INJ* 2 MG/ML VIAL IV PRN ×2 (16:52→21:15)
[2017-03-25] MEDS ORDERED: Metoclopramide IV* 5 MG/ML 2 ML VIAL ONE (19:36)
[2017-03-25] MEDS ORDERED: Metoclopramide IV* 5 MG/ML 2 ML VIAL IV PRN (19:37)
[2017-03-25] MEDS: Chlorthalidone TAB* 50 MG PO SCH (21:15)
[2017-03-25] MEDS: Atenolol TAB* 50 MG PO SCH (21:15)
[2017-03-26] MEDS: Insulin LISPRO* 1 UNITS UNIT SUBCUT SCH ×5 (00:12→18:48)
[2017-03-26] MEDS: HYDROmorphone* 1 MG/ML 1 ML SYR IV PRN ×2 (03:19→06:08)
[2017-03-26] MEDS: oxyCODONE/Acetamin 5/325 MG* TAB PO PRN ×2 (03:27→09:25)
[2017-03-26] MEDS: Heparin VIAL(*) 5000 UNITS/ML VIAL (FIVE THOUSAND) SUBCUT SCH ×3 (06:18→21:18)
[2017-03-26 07:26] LABS: Hematocrit 38 % (35-47); Hemoglobin 12.1 g/dl (12.0-16.0); Mean Corpuscular HGB Conc 32 g/dl (31-36); Mean Corpuscular Hemoglobin 27 pg (27-31); Mean Corpuscular Volume 84 fL (80-97); Mean Platelet Volume 8 um3 (7.4-10.4); Red Blood Count 4.49 10^6/ul (4.0-5.4); Red Cell Distribution Width 17 % (10.5-15)
[2017-03-26 07:36] LABS: BUN/Creatinine Ratio 22.4 (8-20); Calcium 8.1 mg/dL (8.6-10.3); EGFR African American 42.8 (>60); EGFR Non-African American 33.3 (>60); Potassium 2.9 mmol/L (3.5-5.0)
[2017-03-26] MEDS: KCL 10 MEQ/50 ML IVPREMIX* 10 MEQ/50 ML BAG IV SCH ×3 (09:25→13:57)
[2017-03-26] MEDS: Atenolol TAB* 50 MG PO SCH ×2 (09:25→21:18)
[2017-03-26] MEDS: NS 0.9% 1000 ML* 1,000 ML IV SCH (09:25)
[2017-03-26] MEDS: Chlorthalidone TAB* 50 MG PO SCH (09:25)
[2017-03-26] MEDS: Pentoxifylline CR TAB* 400 MG PO SCH (09:25)
[2017-03-26] MEDS: Ondansetron INJ* 2 MG/ML VIAL IV PRN (12:02)
[2017-03-26] MEDS ORDERED: KCL 10 MEQ/50 ML IVPREMIX* 10 MEQ/50 ML BAG ONE (13:53)
--- NOTE | 2017-03-26 14:45 | PN ---
Progress Note - Progress Note SOAP: Subjective: Patient initially seen at 0745 today just seen now in her room Main complaint is nausea. No vomiting and she has not voided since her pan was removed this morning. Her pain is controlled but she did have some epigastric pain earlier this morning. Objective: Temp Pulse Resp BP Pulse Ox 98.0 F 83 16 138/75 98 03/26/17 11:28 03/26/17 11:28 03/26/17 11:28 03/26/17 11:28 03/26/17 11:28 Intake & Output 03/24/17 03/25/17 03/26/17 03/27/17 06:59 06:59 06:59 06:59 Intake Total 3470 1507 Output Total 1050 375 Balance 2420 1132 Weight 139 lb Intake: IV Fluids 3380 1507 KCL in Sterile Water 105 LR 2400 NS (0.9%) 980 1402 Oral 90 Output: Urine 150 Pan 1050 225 PEX: Comfortable Lungs are clear with decreased breath sounds in the bases, no rales Cor is RRR ABd is soft and slightly distended. Dressing is intact. Few bowel sounds present. Extremities without edema. Laboratory Last Values WBC 9.0 10^3/ul (3.5-10.8) 03/26/17 07:00 RBC 4.49 10^6/ul (4.0-5.4) 03/26/17 07:00 Hgb 12.1 g/dl (12.0-16.0) 03/26/17 07:00 Hct 38 % (35-47) 03/26/17 07:00 MCV 84 fL (80-97) 03/26/17 07:00 MCH 27 pg (27-31) 03/26/17 07:00 MCHC 32 g/dl (31-36) 03/26/17 07:00 RDW 17 % (10.5-15) H 03/26/17 07:00 Plt Count 238 10^3/ul (150-450) 03/26/17 07:00 MPV 8 um3 (7.4-10.4) 03/26/17 07:00 Neut % (Auto) 83.6 % (38-83) H 03/26/17 07:00 Lymph % (Auto) 11.5 % (25-47) L 03/26/17 07:00 [place] % (Auto) 4.1 % (1-9) 03/26/17 07:00 Eos % (Auto) 0.6 % (0-6) 03/26/17 07:00 Baso % (Auto) 0.2 % (0-2) 03/26/17 07:00 Absolute Neuts (auto) 7.5 10^3/ul (1.5-7.7) 03/26/17 07:00 Absolute Lymphs (auto) 1.0 10^3/ul (1.0-4.8) 03/26/17 07:00 Absolute Monos (auto) 0.4 10^3/ul (0-0.8) 03/26/17 07:00 Absolute Eos (auto) 0.1 10^3/ul (0-0.6) 03/26/17 07:00 Absolute Basos (auto) 0 10^3/ul (0-0.2) 03/26/17 07:00 Absolute Nucleated RBC 0 10^3/ul 03/26/17 07:00 Nucleated RBC % 0 03/26/17 07:00 Sodium 138 mmol/L (133-145) 03/26/17 07:00 Potassium 2.9 mmol/L (3.5-5.0) L 03/26/17 07:00 Chloride 105 mmol/L (101-111) 03/26/17 07:00 Carbon Dioxide 23 mmol/L (22-32) 03/26/17 07:00 Anion Gap 10 mmol/L (2-11) 03/26/17 07:00 BUN 35 mg/dL (6-24) H 03/26/17 07:00 Creatinine 1.56 mg/dL (0.51-0.95) H 03/26/17 07:00 Est GFR ( Amer) 42.8 (>60) 03/26/17 07:00 Est GFR (Non-Af Amer) 33.3 (>60) 03/26/17 07:00 BUN/Creatinine Ratio 22.4 (8-20) H 03/26/17 07:00 Glucose 243 mg/dL (70-100) H 03/26/17 07:00 POC Glucose (mg/dL) 205 mg/dL (74-106) H 03/26/17 11:55 Calcium 8.1 mg/dL (8.6-10.3) L 03/26/17 07:00 Assessment: POD#1 s/p open reversal of ileostomy HTN DM-BS elevated Chronic renal failure Hypokalemia Nausea Plan: Replete K+ with IV runs, recheck with magnesium later today Hospitalist consult for assistance in DM management and medical concerns Increase activity Sub q heparin Recheck labs in AM PO as tolerated PPI
[2017-03-26] MEDS ORDERED: Scopolamine 1.5 mg* PATCH ONE (14:49)
[2017-03-26] MEDS: Pantoprazole IV* 40 MG IV SCH (14:52)
[2017-03-26] MEDS ORDERED: Scopolamine 1.5 mg* PATCH TRANSDERM SCH (15:00)
--- NOTE | 2017-03-26 15:29 | OP ---
CC: Cruz Ayers DO, [facility]; Nicanor Leon MD, Nephrology * DATE OF OPERATION: 03/25/17 - ROOM #338 DATE OF : 54 SURGEON: Eleno Crowell MD. EARLY YEARS TEACHER: DAVID Estrada. ANESTHESIOLOGIST: Dr. Desai. ANESTHESIA: General with local. PRE-OP DIAGNOSIS: Colon cancer with existing loop ileostomy. POST-OP DIAGNOSIS: Colon cancer with existing loop ileostomy. OPERATIVE PROCEDURE: Open reversal of existing loop ileostomy. ESTIMATED BLOOD LOSS: Minimal. IV FLUIDS: 1.5 L of crystalloids. SPECIMENS: Portion of terminal ileum. COMPLICATIONS: None. DRAINS: None. WOUND CLASSIFICATION: III. BRIEF HISTORY: Ms. Monica Franklin is a 67-year-old woman who recently underwent a rectosigmoid resection for T2N0 colon cancer. This was protected with a diverting loop ileostomy and she, other than having problems with dehydration, has done well. A contrast study showed the anastomosis to be patent without leak and she is now to undergo an elective ileostomy reversal. DESCRIPTION OF PROCEDURE: Written informed consent was obtained, the abdomen was marked with indelible ink and preoperative antibiotics were administered. The patient was taken to the operating room, placed in the supine position. Sequential compression devices and warming blanket were applied. General anesthesia was administered. Lim catheter was inserted. The abdomen were prepped and draped in the usual sterile fashion. Time-out verification was completed. Next an elliptical incision was made around the existing loop ileostomy in the right lower quadrant and down to the full thickness skin into the subcutaneous tissue. The loop of small bowel was then mobilized down to the fascia and the peritoneal cavity was entered around the fascial edges. The small bowel was freed up nicely and there were some intraperitoneal adhesions, which were also lysed to mobilize the small bowel. It was apparent that the loop area of the small bowel was quite scarred and the skin was quite adherent to it. Thus I made a decision to resect a small segment of terminal ileum, no more than about 4 inches. The proximal and distal small bowel was divided with an EndoGIA 3.8 mm stapler. Mesentry was divided and then taken sequentially between 2-0 Polysorb ligatures. A [id number] anastomosis was fashioned using the EndoGIA 60-mm 3.8 mm stapler and the common rent, was closed with a TA-60 3.8 mm stapler. Several sutures were placed to invert the corners and the mesenteric defect was closed with several interrupted 3-0 Polysorb suture. This appeared to be under no tension and was widely patent. Bowel remained nice and pink and viable and this was dunked back into the abdominal cavity. The fascial defect at the ostomy site was then closed in a transverse orientation with interrupted #1 Polysorb suture. The wound was irrigated. Hemostasis was assured. Ba were placed in the lateral and medial aspects of the incision and the wound was then packed with a moist 2-inch Primo gauze and dry sterile dressings were applied. The patient tolerated the procedure well, was taken to the recovery room in stable condition. [id number] #: [id number] MTDD
[2017-03-26 16:12] LABS: Magnesium 1.2 mg/dL (1.9-2.7); Potassium 3.5 mmol/L (3.5-5.0)
[2017-03-26] MEDS ORDERED: Magnesium Sulf 4 GM/100 ML IV* 4,000 MG/100 ML BAG IVPB ONE (17:00)
[2017-03-26] MEDS: Insulin GLARGINE(*) 1 UNITS UNIT SUBCUT SCH (21:18)
--- NOTE | 2017-03-26 22:11 | CONS ---
CC: Dr. Ayers; Dr. Crowell* MEDICAL CONSULTATION: DATE OF CONSULT/DICTATION: 03/26/17 PRIMARY CARE PROVIDER: Dr. Ayers PRIMARY ONCOLOGIST: Dr. Calabrese. REQUESTING PROVIDER AND SURGEON: Dr. Crowell. CONSULTING PROVIDER: DAVID Barbosa SUPERVISING PHYSICIAN: Dr. Marilyn Vera. REASON FOR CONSULT: Diabetes management and general medical co-management. HISTORY OF PRESENT ILLNESS: This is a 67-year-old female rather recently diagnosed with colon cancer, status post partial colon resection and ileostomy who now returns from hospital for ileostomy reversal. Surgery was completed yesterday by Dr. Crowell. She has been hyperglycemic and nauseated since surgery and request has been made for medical consultation from the hospitalist group. It looks like the patient was admitted just a couple of weeks ago with hyponatremia and dehydration. There was discussion at that time of discontinuing her atenolol and chlorthalidone. The patient states that she was given an alternate medication perhaps as an outpatient that is now listed on her discharge summary that was making her nauseated and she has since resumed her atenolol and chlorthalidone. In regards to her home glucose management she states that her blood sugar is generally pretty well controlled. She states that her fasting glucose average is about 130 mg/dL and her bedtime glucose is about 170 mg/dL. She manages her blood sugar with nighttime Levemir dosing and takes between 10 and 15 units depending on what her glucose is before bed. Last hemoglobin A1c is from January and was 8.1% at that time. There is also a question of etiology of the lung mass that has been identified. She has 2.1 cm lung mass that etiology has not been specifically identified. As a part of that workup, her colon mass was identified and further treatment and evaluation of her colon cancer has taken precedence at this time. The patient states that her plans are to recover from the surgery and then follow up with Oncology regarding further evaluation of her known lung mass. PAST MEDICAL HISTORY: 1. Colon cancer status post resection - T2N0 lesion. 2. Lung mass of unknown etiology, pending further workup. 3. Peripheral vascular disease. 4. Insulin-dependent diabetes. 5. GERD. 6. Hypertension. 7. Chronic kidney disease, stage 3. PAST SURGICAL HISTORY: 1. Colon resection with ileostomy and now subsequent reversal. 2. Cholecystectomy. 3. Right elbow surgery. 4. Appendectomy. 5. Tubal ligation. HOME MEDICATIONS: 1. Atenolol/chlorthalidone 50/25 one tablet p.o. twice daily. 2. Levemir 10 to 15 units subcu nightly. 3. Trental controlled release 400 mg p.o. daily. SOCIAL HISTORY: The patient lives at home with her . She continues to smoke approximately 1 pack of cigarettes daily. Unsure of her exact pack year history. No regular alcohol consumption. REVIEW OF SYSTEMS: The patient reports severe nausea and dry heaves without vomiting. No bowel movement since surgery or flatus. No abdominal pain. No complaints of cough, shortness of breath, chest pain, or palpitations. No lower extremity edema. No rashes or other lesions. PHYSICAL EXAM: Recent vitals: Temperature 98 degrees Fahrenheit, pulse 83 beats per minute, respiratory rate 16, oxygen saturation 98% on room air, blood pressure 138/75 mmHg. General: This is a 67-year-old female who appears older than stated age who is sitting at the side of her hospital bed with an emesis basin and appears mildly ill. HEENT: Head is normocephalic and atraumatic. Mucous membranes are pink and moist. Cardiovascular: Heart has a regular rate and rhythm without murmurs, rubs or gallops. Respiratory: There is a few rhonchi appreciated at posterior lung field. No crackles or wheezes noted. Abdomen: The patient is severely nauseated and does not tolerate an abdominal exam at this time. Extremities: No edema appreciated. Skin: Limited exam shows no concerning rashes or lesions. DIAGNOSTIC STUDIES/LAB DATA: CBC shows a white blood cell count of 9000, hemoglobin 12.1 g/dL, platelet count of 238,000. Basic metabolic panel shows normal sodium of 138 mmol/L, potassium of 2.9, BUN of 35, creatinine 1.56 with estimated GFR of 33. Fasting glucose of 255 this morning. IMAGING: None. ASSESSMENT AND PLAN: This is a 67-year-old female with colon cancer status post resection as well as an unidentified lung mass, peripheral vascular disease , insulin-dependent diabetes, GERD, hypertension, and chronic kidney disease who has been admitted for ileostomy reversal completed by Dr. Crowell . Hospitalist group has been consulted for medical co-management specifically diabetes management. 1. Status post ileostomy reversal - further management per General Surgery. 2. Intractable nausea - scopolamine patch was recently added. Can also add p.r.n. Compazine. 3. Insulin-dependent diabetes - the patient has been hyperglycemic since surgery which is not too terribly unexpected, her fasting glucose this morning was 255. She has had really nothing to eat due to the severity of her nausea. At this point, recommend restarting long-acting insulin and order has been added for Lantus 10 units starting this evening. We can continue to correct hyperglycemia greater than 200 mg/dL per sliding scale Humalog at meal times, tolerates glucose up to 250 mg/dL postoperatively and avoid anything less than 120 mg/dL. 4. Hypokalemia - potassium was 2.9 this morning. She has been replaced with 3 runs of 10 mEq IV today with plans for repeat labs this afternoon. Requested magnesium be added to afternoon labs and we will replace accordingly. Maintenance fluids with lactated Ringer's with potassium will probably be more effective than maintaining appropriate electrolyte balance. We will also discontinue her chlorthalidone at this time. 5. Chronic kidney disease - BUN and creatinine appear to be near baseline. Plan to avoid nephrotoxic agents and to review of her current orders to not identify any offending medications. 6. Hypertension - the patient is moderately hypertensive at this time. We will plan to continue her atenolol as listed above. We will hold her chlorthalidone due to her hypokalemia. 7. Peripheral vascular disease - continue her Trental. 8. Colon cancer, status post resection without further treatment indicated as this was a T2N0 lesion. 9. Lung mass. Pending further workup following recovery from this hospitalization. 10. Code status, the patient is full code. 11. DVT prophylaxis, heparin subcu. 12. Healthcare proxy is the patient's . DISPOSITION: The patient will remain under the care of surgical team and hospitalist group will continue to follow along for medical co-management. Discharge planning will be per Surgery. DAVID BARBOSA [id number]/[facility] #: [id number] GOLD
[2017-03-27] MEDS: Insulin LISPRO* 1 UNITS UNIT SUBCUT SCH ×4 (00:19→18:27)
[2017-03-27] MEDS: Heparin VIAL(*) 5000 UNITS/ML VIAL (FIVE THOUSAND) SUBCUT SCH ×3 (05:32→21:38)
[2017-03-27] MEDS: Atenolol TAB* 50 MG PO SCH ×2 (08:52→20:09)
[2017-03-27] MEDS: Pentoxifylline CR TAB* 400 MG PO SCH (08:52)
[2017-03-27 09:04] LABS: BUN/Creatinine Ratio 17.5 (8-20); Calcium 8.1 mg/dL (8.6-10.3); EGFR African American 49.8 (>60); EGFR Non-African American 38.7 (>60)
--- NOTE | 2017-03-27 09:09 | PN ---
Progress Note - Progress Note SOAP: Subjective: Feels better today-nausea is improved and she has less abdominal pain No flatus or BM She is taking small amounts of broth and water No SOB or CP She ambulated in the halls last night. Objective: Temp Pulse Resp BP Pulse Ox 98.4 F 81 18 168/74 97 03/27/17 07:25 03/27/17 07:25 03/27/17 07:25 03/27/17 07:25 03/27/17 07:25 Intake & Output 03/25/17 03/26/17 03/27/17 03/28/17 06:59 06:59 06:59 06:59 Intake Total 3470 5177 Output Total 1050 1650 Balance 2420 3527 Weight 139 lb Intake: IV Fluids 3380 3677 KCL in Sterile Water 159 LR 2400 712 NS (0.9%) 980 1721 Oral 90 1500 Output: Urine 1425 Lim 1050 225 Other: # Bowel Movements 0 PEX: Comfortable Lungs are clear COr is RRR Abd is soft and non-distended. Bowel sounds are not present. Ostomy site in RLQ is clean and the packing was changed. Appropriated incisional pain. Ext without edema Labs are pending Assessment: POD#2 s/p open ileostomy reversal DM HTN CRF Nausea/ileus-improving Plan: Appreciate hospitalist consult Ms. Monson assistance with medical management. Increase activity Anti-emetics as needed--advance diet as tolerated. Subq heparin and PPI Check labs
[2017-03-27] MEDS ORDERED: KCL 10 MEQ/50 ML IVPREMIX* 10 MEQ/50 ML BAG IV SCH (10:00)
[2017-03-27] MEDS: KCL 10 MEQ/50 ML IVPREMIX* 10 MEQ/50 ML BAG IV SCH ×2 (12:24→16:22)
[2017-03-27] MEDS: Pantoprazole IV* 40 MG IV SCH (14:22)
--- NOTE | 2017-03-27 15:49 | PN ---
Subjective Date of Service: 03/27/17 Interval History: Patient is POD #2 s/p ileostomy. She reports she is now flatus. She feels less nauseated. She tolerated some broth today without worsening symptoms. Limited abdominal pain. No CP or SOB. Objective Active Medications: Acetaminophen (Tylenol Tab*) 650 mg PO Q4H PRN PRN Reason: Pain Or Temperature >101 F Atenolol (Tenormin Tab*) 50 mg PO BID [facility] Last Admin: 03/27/17 08:52 Dose: 50 mg Dextrose (D50w Syringe 50 Ml*) 12.5 gm IV PUSH .FOR FS < 60 - SS PRN PRN Reason: FS < 60 Docusate Sodium (Colace Cap*) 100 mg PO BID PRN PRN Reason: CONSTIPATION Heparin Sodium (Porcine) (Heparin Vial(*)) 5,000 units SUBCUT Q8HR [facility] Last Admin: 03/27/17 14:22 Dose: 5,000 units Hydromorphone HCl (Dilaudid Iv*) 0.5 mg IV Q1H PRN PRN Reason: PAIN - SEVERE Last Admin: 03/26/17 06:08 Dose: 0.5 mg Potassium Chloride 20 meq/ (Lactated Ringer's) 1,010 mls @ 101 mls/hr IVPB Q10H [facility] Last Admin: 03/27/17 14:21 Dose: 101 mls/hr Insulin Glargine (Lantus(*)) 10 units SUBCUT 2100 [facility] Last Admin: 03/26/17 21:18 Dose: 10 units Insulin Human Lispro (Humalog*) 1 - 10 units SUBCUT Q6HR [facility] PRN Reason: Protocol Last Admin: 03/27/17 12:24 Dose: 1 units Ondansetron HCl (Zofran Inj*) 4 mg IV Q4H PRN PRN Reason: NAUSEA/VOMITING Last Admin: 03/26/17 12:02 Dose: 4 mg Oxycodone/Acetaminophen (Percocet 5/325 Tab*) 1 tab PO Q4H PRN PRN Reason: PAIN Last Admin: 03/26/17 09:25 Dose: 1 tab Pantoprazole Sodium (Protonix Iv*) 40 mg IV Q24H [facility] Last Admin: 03/27/17 14:22 Dose: 40 mg Pentoxifylline (Trental Cr Tab*) 400 mg PO QAM [facility] Last Admin: 03/27/17 08:52 Dose: 400 mg Scopolamine (Transderm-Scop 1.5 Mg Patch*) 1 patch TRANSDERM Q72H [facility] Last Admin: 03/26/17 14:52 Dose: 1 patch Vital Signs: Temp Pulse Resp BP Pulse Ox 98.3 F 80 17 153/70 98 03/27/17 11:44 03/27/17 11:44 03/27/17 11:44 03/27/17 11:44 03/27/17 11:44 Appearance: Well appearing female who appears slightly older than stated age in NAD Respiratory: Symmetrical Chest Expansion and Respiratory Effort, Clear to Auscultation Cardiovascular: NL Sounds; No Murmurs; No JVD, RRR Abdominal: - - slightly distended, BS quiet, diffuse TTP Extremities: - - trace LE edema Neurological: Alert and Oriented x 3 Result Diagrams: 03/26/17 07:00 03/27/17 08:35 Assess/Plan/Problems-Billing Assessment: This is a 67 yo female with h/o colon cancer s/p resection, PVD, IDDM, GERD, HTN and CKD who underwent ileostomy reversal with Dr Crowell. Hospitalist group has been consulted for medical co-management, specifically help with glycemic control. - Patient Problems (1) H/O malignant neoplasm of colon Comment: s/p resection now POD #2 following ileostomy takedown Management per surgery team (2) HTN (hypertension) Comment: Slightly hypertensive Chlorthalidone held in setting of hypokalemia/hypomagnesemia and poor oral intake (3) Hypokalemia Comment: Improving, requires additional replacement (4) Type 2 diabetes mellitus Comment: Improved glycemic control since starting Lantus Cont 10U Lantus with SS mealtime insulin (5) Hypomagnesemia Comment: Replaced IV (6) PVD (peripheral vascular disease) (7) Full code status (8) DVT prophylaxis Comment: SQ heparin. Status and Disposition: Inpatient. Dispo per surgery team
[2017-03-27] MEDS: Insulin GLARGINE(*) 1 UNITS UNIT SUBCUT SCH (20:08)
[2017-03-28] MEDS: Insulin LISPRO* 1 UNITS UNIT SUBCUT SCH ×4 (00:50→17:56)
[2017-03-28] MEDS: Heparin VIAL(*) 5000 UNITS/ML VIAL (FIVE THOUSAND) SUBCUT SCH ×3 (05:32→23:22)
[2017-03-28 06:28] LABS: BUN/Creatinine Ratio 16.4 (8-20); Blood Urea Nitrogen 19 mg/dL (6-24); CO2 Carbon Dioxide 23 mmol/L (22-32); Calcium 7.8 mg/dL (8.6-10.3); Chloride 107 mmol/L (101-111); EGFR African American 60.3 (>60); EGFR Non-African American 46.9 (>60); Glucose 83 mg/dL (70-100); Sodium 136 mmol/L (133-145)
[2017-03-28 07:40] LABS: Anion Gap 6 mmol/L (2-11)
[2017-03-28] MEDS: Pentoxifylline CR TAB* 400 MG PO SCH (08:41)
[2017-03-28] MEDS: Atenolol TAB* 50 MG PO SCH ×2 (08:41→20:19)
[2017-03-28 09:09] LABS: Magnesium 1.6 mg/dL (1.9-2.7); Potassium 3.4 mmol/L (3.5-5.0)
[2017-03-28] MEDS ORDERED: Magnesium Sulf 4 GM/100 ML IV* 4,000 MG/100 ML BAG IVPB ONE (12:10)
--- NOTE | 2017-03-28 14:01 | PN ---
Subjective Date of Service: 03/28/17 Interval History: Patient reports improvement in pain and nausea. Appetite is improving. Denies cough or SOB Objective Active Medications: Acetaminophen (Tylenol Tab*) 650 mg PO Q4H PRN PRN Reason: Pain Or Temperature >101 F Atenolol (Tenormin Tab*) 50 mg PO BID [facility] Last Admin: 03/28/17 08:41 Dose: 50 mg Dextrose (D50w Syringe 50 Ml*) 12.5 gm IV PUSH .FOR FS < 60 - SS PRN PRN Reason: FS < 60 Docusate Sodium (Colace Cap*) 100 mg PO BID PRN PRN Reason: CONSTIPATION Heparin Sodium (Porcine) (Heparin Vial(*)) 5,000 units SUBCUT Q8HR [facility] Last Admin: 03/28/17 05:32 Dose: 5,000 units Hydromorphone HCl (Dilaudid Iv*) 0.5 mg IV Q1H PRN PRN Reason: PAIN - SEVERE Last Admin: 03/26/17 06:08 Dose: 0.5 mg Potassium Chloride 20 meq/ (Lactated Ringer's) 1,010 mls @ 101 mls/hr IVPB Q10H [facility] Last Admin: 03/28/17 12:07 Dose: 101 mls/hr Magnesium Sulfate (Magnesium Sulf 4 Gm/100 Ml Iv*) 4,000 mg in 100 mls @ 33.333 mls/hr IVPB ONCE ONE Stop: 03/28/17 15:09 Last Admin: 03/28/17 12:42 Dose: 33.333 mls/hr Insulin Glargine (Lantus(*)) 10 units SUBCUT 2100 [facility] Last Admin: 03/27/17 20:08 Dose: 10 units Insulin Human Lispro (Humalog*) 1 - 10 units SUBCUT Q6HR [facility] PRN Reason: Protocol Last Admin: 03/28/17 11:42 Dose: Not Given Ondansetron HCl (Zofran Inj*) 4 mg IV Q4H PRN PRN Reason: NAUSEA/VOMITING Last Admin: 03/26/17 12:02 Dose: 4 mg Oxycodone/Acetaminophen (Percocet 5/325 Tab*) 1 tab PO Q4H PRN PRN Reason: PAIN Last Admin: 03/26/17 09:25 Dose: 1 tab Pantoprazole Sodium (Protonix Iv*) 40 mg IV Q24H [facility] Last Admin: 03/27/17 14:22 Dose: 40 mg Pentoxifylline (Trental Cr Tab*) 400 mg PO QAM [facility] Last Admin: 03/28/17 08:41 Dose: 400 mg Scopolamine (Transderm-Scop 1.5 Mg Patch*) 1 patch TRANSDERM Q72H [facility] Last Admin: 03/26/17 14:52 Dose: 1 patch Vital Signs: Temp Pulse Resp BP Pulse Ox 98.3 F 65 16 157/65 100 03/28/17 12:47 03/28/17 12:47 03/28/17 12:47 03/28/17 12:47 03/28/17 12:47 Appearance: Relatively well appearing female in NAD Respiratory: Symmetrical Chest Expansion and Respiratory Effort, Clear to Auscultation Cardiovascular: NL Sounds; No Murmurs; No JVD, RRR Abdominal: - - abd soft, mild TTP, BS slightly hyperactive Extremities: No Edema Neurological: Alert and Oriented x 3 Result Diagrams: 03/26/17 07:00 03/28/17 08:42 Assess/Plan/Problems-Billing Assessment: This is a 67 yo female with h/o colon cancer s/p resection, PVD, IDDM, GERD, HTN and CKD who underwent ileostomy reversal with Dr Crowell. Hospitalist group has been consulted for medical co-management, specifically help with glycemic control. - Patient Problems (1) H/O malignant neoplasm of colon Comment: s/p resection now POD #3 following ileostomy takedown Management per surgery team (2) HTN (hypertension) Comment: Slightly hypertensive Chlorthalidone held in setting of hypokalemia/hypomagnesemia and poor oral intake (3) Hypokalemia Comment: Improving, requires additional replacement (4) Hypomagnesemia Comment: Requires additional replacement (5) Type 2 diabetes mellitus Comment: Improved glycemic control since starting Lantus Cont 10U Lantus with SS mealtime insulin (6) PVD (peripheral vascular disease) (7) Full code status (8) DVT prophylaxis Comment: SQ heparin. Status and Disposition: Inpatient. Dispo per surgery team
[2017-03-28] MEDS: Pantoprazole IV* 40 MG IV SCH (14:16)
--- NOTE | 2017-03-28 17:20 | PN ---
Progress Note - Progress Note Note: Surgery Progress: (late entry; patient seen ~ 1300) S: POD #3. Joe clears; no N/V. Passing flatus. Min pain. Ambulating well. O: Vital Signs - 8 hr 03/28/17 03/28/17 12:47 15:23 Temperature 98.3 F 97.8 F Pulse Rate 65 67 Respiratory 16 19 Rate Blood Pressure 157/65 151/74 (mmHg) O2 Sat by Pulse 100 99 Oximetry Intake and Output Last 24 Hours 03/26/17 03/27/17 03/28/17 03/29/17 06:59 06:59 06:59 06:59 Intake Total 3470 5177 3588 1894 Output Total 1050 1650 1450 400 Balance 2420 3527 2138 1494 Intake: IV Fluids 3380 3677 2200 1294 KCL in Sterile Water 159 LR 2400 712 LR c/20 mEq KCL 2200 1294 NS (0.9%) 980 1721 IVPB 113 Potassium chloride 113 Oral 90 1500 1275 600 Output: Urine 1425 1450 400 Lim 1050 225 Other: # Bowel Movements 0 Heart: reg Lungs: clear Abd: +BS; incision clean w/ small to mod amt of serosang drainage; soft; mild tenderness to palp; pkg (1/2" plain) changed; DSD placed. A: doing well s/p ileostomy reversal P: adv diet; wound care (home nsg for pkg changes); poss d/c home 03/29 Laboratory Tests 03/27/17 03/28/17 03/28/17 20:05 00:50 05:31 Potassium POC Glucose (mg/dL) 153 H 114 H 97 Magnesium 03/28/17 03/28/17 08:42 11:40 Potassium 3.4 L POC Glucose (mg/dL) 119 H Magnesium 1.6 L
[2017-03-28] MEDS: Insulin GLARGINE(*) 1 UNITS UNIT SUBCUT SCH (20:19)
[2017-03-29] MEDS: Insulin LISPRO* 1 UNITS UNIT SUBCUT SCH (02:59)
[2017-03-29] MEDS: Heparin VIAL(*) 5000 UNITS/ML VIAL (FIVE THOUSAND) SUBCUT SCH (06:03)
[2017-03-29 07:12] LABS: BUN/Creatinine Ratio 12.8 (8-20); Calcium 8.1 mg/dL (8.6-10.3); EGFR African American 59.7 (>60); EGFR Non-African American 46.4 (>60); Potassium 3.2 mmol/L (3.5-5.0)
[2017-03-29] MEDS: Atenolol TAB* 50 MG PO SCH (08:18)
[2017-03-29] MEDS: Pentoxifylline CR TAB* 400 MG PO SCH (08:18)
[2017-03-29 08:30] LABS: Magnesium 2.2 mg/dL (1.9-2.7)
[2017-03-29 08:47] VITALS: BP 137/53
--- NOTE | 2017-03-29 08:58 | PN ---
Progress Note - Progress Note Date of Service: 03/29/17 SOAP: Subjective: She is doing well Tolerating full liquids and is passing gas and had several loose bowel movements yesterday She has no pain and is not taking any pain medication She is ambulating She feels she is ready to go home today Objective: Temp Pulse Resp BP Pulse Ox 97.9 F 72 16 137/53 94 03/29/17 08:08 03/29/17 08:08 03/29/17 08:08 03/29/17 08:08 03/29/17 08:08 Intake & Output 03/27/17 03/28/17 03/29/17 03/30/17 06:59 06:59 06:59 06:59 Intake Total 5177 3588 4784 Output Total 1650 1450 800 0 Balance 3527 2138 3984 0 Intake: IV Fluids 3677 2200 2275 KCL in Sterile Water 159 LR 712 LR c/20 mEq KCL 2200 2275 NS (0.9%) 1721 IVPB 113 109 LR c/20 mEq KCL 70 Potassium chloride 113 magnesium sulfate 39 Oral 1500 1275 2400 Output: Urine 1425 1450 800 0 Lim 225 Other: Estimated Void Medium # Bowel Movements 0 1 Estimated Stool Amount Small # Voids 1 PEX: Comfortable Lungs are clear Abd is soft and non-distended. Ostomy site is clean and pink and packing was changed. No odor or purulence. Extremities without edema Laboratory Last Values WBC 9.0 10^3/ul (3.5-10.8) 03/26/17 07:00 RBC 4.49 10^6/ul (4.0-5.4) 03/26/17 07:00 Hgb 12.1 g/dl (12.0-16.0) 03/26/17 07:00 Hct 38 % (35-47) 03/26/17 07:00 MCV 84 fL (80-97) 03/26/17 07:00 MCH 27 pg (27-31) 03/26/17 07:00 MCHC 32 g/dl (31-36) 03/26/17 07:00 RDW 17 % (10.5-15) H 03/26/17 07:00 Plt Count 238 10^3/ul (150-450) 03/26/17 07:00 MPV 8 um3 (7.4-10.4) 03/26/17 07:00 Neut % (Auto) 83.6 % (38-83) H 03/26/17 07:00 Lymph % (Auto) 11.5 % (25-47) L 03/26/17 07:00 [place] % (Auto) 4.1 % (1-9) 03/26/17 07:00 Eos % (Auto) 0.6 % (0-6) 03/26/17 07:00 Baso % (Auto) 0.2 % (0-2) 03/26/17 07:00 Absolute Neuts (auto) 7.5 10^3/ul (1.5-7.7) 03/26/17 07:00 Absolute Lymphs (auto) 1.0 10^3/ul (1.0-4.8) 03/26/17 07:00 Absolute Monos (auto) 0.4 10^3/ul (0-0.8) 03/26/17 07:00 Absolute Eos (auto) 0.1 10^3/ul (0-0.6) 03/26/17 07:00 Absolute Basos (auto) 0 10^3/ul (0-0.2) 03/26/17 07:00 Absolute Nucleated RBC 0 10^3/ul 03/26/17 07:00 Nucleated RBC % 0 03/26/17 07:00 Sodium 137 mmol/L (133-145) 03/29/17 06:17 Potassium 3.2 mmol/L (3.5-5.0) L 03/29/17 06:17 Chloride 106 mmol/L (101-111) 03/29/17 06:17 Carbon Dioxide 27 mmol/L (22-32) 03/29/17 06:17 Anion Gap 4 mmol/L (2-11) 03/29/17 06:17 BUN 15 mg/dL (6-24) 03/29/17 06:17 Creatinine 1.17 mg/dL (0.51-0.95) H 03/29/17 06:17 Est GFR ( Amer) 59.7 (>60) 03/29/17 06:17 Est GFR (Non-Af Amer) 46.4 (>60) 03/29/17 06:17 BUN/Creatinine Ratio 12.8 (8-20) 03/29/17 06:17 Glucose 119 mg/dL (70-100) H 03/29/17 06:17 POC Glucose (mg/dL) 150 mg/dL (74-106) H 03/28/17 17:51 Hemoglobin A1c 8.1 % (Less than 6.0) H 03/26/17 07:00 Calcium 8.1 mg/dL (8.6-10.3) L 03/29/17 06:17 Magnesium 2.2 mg/dL (1.9-2.7) 03/29/17 06:17 Assessment: POD# 4 s/p open reversal of ileostomy-doing well with resolution of ileus and tolerating oral intake HTN CRF DM Plan: D/C home today VNA for wound care ostomy site Reviewed and discussed medications with hospitalist Ms. Monson--will continue Atenolol and hold diuretic (atenolol Rx sent to [facility]) and continue present diabetic medications as pre-hospital. Office follow up next week.
[2017-03-29] MEDS ORDERED: Potassium Chlor TAB* 20 MEQ TAB.ER PO SCH (09:00)
[2017-03-29] MEDS ORDERED: Insulin LISPRO* 1 UNITS UNIT SUBCUT SCH (09:00)
--- NOTE | 2017-03-29 12:28 | PN ---
Hospitalist Progress Note Patient was discharged home by surgical team this am after having a BM overnight. Reviewed case and recommendations with surgeon, Dr Crowell, prior to discharge. Recommend continuing Atenolol, but not resuming chlorthalidone. Insulin can be resumed at her usual home doses. Follow up will be with surgery and her PCP, please see discharge instructions. Physical exam was not performed by myself today prior to discharge. Vital Signs: Temp Pulse Resp BP Pulse Ox 97.9 F 72 16 137/53 94 03/29/17 08:08 03/29/17 08:08 03/29/17 08:08 03/29/17 08:08 03/29/17 08:08 Laboratory Results - last 24 hr 03/28/17 03/29/17 17:51 06:17 Sodium 137 Potassium 3.2 L Chloride 106 Carbon Dioxide 27 Anion Gap 4 BUN 15 Creatinine 1.17 H Est GFR ( Amer) 59.7 Est GFR (Non-Af Amer) 46.4 BUN/Creatinine Ratio 12.8 Glucose 119 H POC Glucose (mg/dL) 150 H Calcium 8.1 L Magnesium 2.2
== END 2017-03-29 10:30 | disposition home or self-care (01) | DRG 223 ==
LOC: OR 06:25 → SSU 09:00 → INTOOBSV 12:16 → OBSVTOIN 03-27 09:00
PROVIDERS: ADMIT Surgery; ATTEND Surgery
PROC: 0DBB0ZZ Excision of Ileum, Open Approach (ICD-10-PCS; principal; 2017-03-27)
DX: Z43.2 Encounter for attention to ileostomy (principal); C19 Malignant neoplasm of rectosigmoid junction; E10.22 Type 1 diabetes mellitus with diabetic chronic kidney disease; E10.51 Type 1 diabetes mellitus with diabetic peripheral angiopathy without gangrene; E83.42 Hypomagnesemia; K56.7 Ileus, unspecified; R11.0 Nausea; I12.9 Hypertensive chronic kidney disease with stage 1 through stage 4 chronic kidney disease, or unspecified chronic kidney disease; E10.65 Type 1 diabetes mellitus with hyperglycemia; E87.6 Hypokalemia; R91.8 Other nonspecific abnormal finding of lung field; F17.210 Nicotine dependence, cigarettes, uncomplicated; K21.9 Gastro-esophageal reflux disease without esophagitis; N18.3 Chronic kidney disease, stage 3 (moderate); Z98.51 Tubal ligation status; Z90.49 Acquired absence of other specified parts of digestive tract; Z88.0 Allergy status to penicillin; Z79.4 Long term (current) use of insulin
CPT/HCPCS: 36415; 80048; 83036; 83735; 84132; 85025; 88304; 94760; A9270-GY; C1776; G0378; J1170; J1644; J2405; J2704; J3010; J3480